=== PATIENT | female | born 1960 | race Caucasian/White ===

== ENCOUNTER → 2017-10-11 16:32 | Outpatient (CLI) | payer BC, SELFPAY ==
--- NOTE | 2017-10-11 16:37 | MM_ITS ---
MM Dig screening mamm BI w/CAD CAD Screening COMPARISON: Digital mammograms 09/23/2015 and 06/18/2013 INDICATION: There is no personal or family history of breast cancer TECHNIQUE: Standard CC and MLO images were obtained. R2 CAD reviewed. FINDINGS: Moderate diffuse fiber glandular densities are seen throughout both breasts. There is a mole marker right breast. There is no suspicious lesion and there are no suspicious microcalcifications. IMPRESSION: Moderate diffuse breast density with no suspicious lesion seen BI-RADS Category: 2 Benign Finding(s) RECOMMENDED FOLLOW-UP: 1YR - 1 YEAR FOLLOW-UP (A letter has been sent to the patient regarding results of the study.)
== END ==
PROVIDERS: Family Provider Family Medicine; PCP Family Medicine; Visit Provider Family Medicine
DX: Z12.31 Encounter for screening mammogram for malignant neoplasm of breast (principal)
CPT/HCPCS: 77067

== ENCOUNTER → 2019-07-25 14:51 | Outpatient (CLI) | payer BC, SELFPAY ==
--- NOTE | 2019-07-25 14:59 | MM_ITS ---
PROCEDURE: MM DIG MAMM BI DX W/CAD CLINICAL INDICATION: YRN BREAST PAIN COMPARISON: [facility] DIG MAMM-SCREEN YRN from 06/18/2013 [facility] DIG MAMM- YRN ADD VIEWS from 06/26/2013 [facility] DIG MAMM-SCREEN YRN from 09/23/2015 [facility] MM Dig screening mamm BI w/CAD from 10/11/2017 US BREAST RT COMPLETE from 07/25/2019 US BREAST LT COMPLETE from 07/25/2019 TECHNIQUE: Standard CC and MLO images and 3D Tomosynthesis was obtained. R2 CAD reviewed. Bilateral breast ultrasound FINDINGS: Average fibroglandular tissue. Right breast: Lobular nodularity noted in the retroareolar region on right some which may be due to ductal ectasia. No malignant appearing mass or malignant-appearing microcalcification. Right breast ultrasound: There is an 8 mm benign-appearing cyst present in the retroareolar region along with some ductal ectasia. No suspicious nodules evident. Left breast: There is some asymmetric density in the central 1/3 of the left breast in the retroareolar region. This has been present dating back to 06/26/2013 and is less apparent on the rolled views and 3D tomography and is felt to be due to overlapping fibroglandular tissue. Left breast ultrasound: There is a 6 mm cyst in the retroareolar region the. No suspicious solid nodules evident. IMPRESSION: BI-RAD Category: 2 Benign Finding(s) FOLLOW-UP: 1YR 1 Year Follow-up (A letter has been sent to the patient regarding results of the study.) Dictated by: Simeon Adams MD 07/26/2019 12:03 Electronically signed by Simeon Adams MD in [place] 07/26/2019 12:03
== END ==
PROVIDERS: PCP Family Medicine; Visit Provider Family Medicine
DX: N64.4 Mastodynia (principal)
CPT/HCPCS: 76641; 77062; 77066; G0279

== ENCOUNTER → 2021-08-27 10:07 | Outpatient (CLI) | payer BC, SELFPAY ==
[2021-08-27 12:35] LABS: Alanine Aminotransferase 19 U/L (12-78); Albumin Level 4.2 g/dl (3.5-5.0); Albumin/Globulin Ratio 1.6 (1.1-1.8); Alkaline Phosphatase 63 U/L (38-126); Anion Gap 9.5 mEq/L (5-15); Aspartate Amino Transferase 28 U/L (14-36); Bilirubin,Total 0.7 mg/dl (0.2-1.3); Blood Urea Nitrogen 17 mg/dl (7-17); Calcium 9.2 mg/dl (8.4-10.2); Carbon Dioxide 32 mmol/L (22.0-30.0); Chloride 102 mmol/L (98-107); Chol/HDL Ratio 4.5 (1-3.5); Cholesterol 203 mg/dl (140-200); Estimated Glomerular Filt Rate 72 ml/min (>60); GFR (African American) 88 ML/MIN (>60); Globulin 2.7 g/dL (1.3-3.2); Glucose 90 mg/dl (74-100); HDL Cholesterol 45 mg/dl (40-60); Potassium 4.5 mmoL/L (3.5-5.1); Sodium 139 mmol/L (136-145); Total Protein,Serum 6.9 g/dl (6.3-8.2); Triglycerides 159 mg/dl (30-150); VLDL Cholesterol 32 mg/dL (0-40)
[2021-08-27 12:46] LABS: Direct LDL Cholesterol 105.06 mg/dL (100-129)
[2021-08-27 12:50] LABS: Free T4 (Free Thyroxine) 1.03 ng/dl (0.78-2.19)
[2021-08-27 13:04] LABS: Thyroid Stimulating Hormone 7.33 uIU/mL (0.465-4.68)
== END ==
PROVIDERS: PCP Family Medicine; Visit Provider Family Medicine
DX: M25.512 Pain in left shoulder (principal); E78.2 Mixed hyperlipidemia; E03.9 Hypothyroidism, unspecified
CPT/HCPCS: 36415; 80053; 80061; 84439; 84443

== ENCOUNTER → 2021-10-20 16:16 | Outpatient (CLI) | payer BC, SELFPAY ==
--- NOTE | 2021-10-20 16:19 | MM_ITS ---
PROCEDURE INFORMATION: Exam: MG Bilateral Screening 3D Mammography Exam date and time: 10/20/2021 4:15 PM Age: 61 years old Clinical indication: Screening examination TECHNIQUE: Imaging protocol: Bilateral Screening tomosynthesis and 2D mammography including computer-aided detection (CAD) when performed. COMPARISON: 1. MG MM DIG MAMM BI DX W/CAD 07/25/2019 3:00 PM 2. MG [facility] MM Dig screening mamm BI w/CAD 10/11/2017 4:41 PM FINDINGS: MAMMOGRAPHY: Breast composition: There are scattered areas of fibroglandular density. Mass: None. Architectural distortion: None. Calcifications: No suspicious calcifications. Asymmetric density: None. Skin thickening: None. Axillary adenopathy: None. IMPRESSION: No mammographic evidence of malignancy. Annual screening is recommended unless otherwise clinically indicated. ASSESSMENT: BI-RADS Category 1: Negative
== END ==
PROVIDERS: PCP Family Medicine; Visit Provider Family Medicine
DX: Z12.31 Encounter for screening mammogram for malignant neoplasm of breast (principal)
CPT/HCPCS: 77063; 77067

== ENCOUNTER 2023-06-26 09:50 | Outpatient (CLI) | payer MEDICARE, SELFPAY ==
--- NOTE | 2023-06-26 09:55 | MM_ITS ---
PROCEDURE INFORMATION: Exam: MG Bilateral Screening 3D Mammography Exam date and time: 06/26/2023 10:16 AM Age: 63 years old Clinical indication: Screening mammogram TECHNIQUE: Imaging protocol: Bilateral Screening tomosynthesis and 2D mammography including computer-aided detection (CAD) when performed. COMPARISON: 1. MG MM DIG SCREENING MAMM BI W/CAD 10/20/2021 4:15 PM 2. MG MM DIG MAMM BI DX W/CAD 07/25/2019 3:00 PM 3. MG [facility] MM Dig screening mamm BI w/CAD 10/11/2017 4:41 PM 4. MG [facility] DIG MAMM-SCREEN YRN 09/23/2015 4:23 PM FINDINGS: MAMMOGRAPHY: Breast composition: There are scattered areas of fibroglandular density. Mass: None. Architectural distortion: No new or suspicious architectural distortion. Calcifications: Calcifications within the slightly upper slightly inner left middle 1/3 should be assessed with spot MAGNIFICATION views in CC/ML projection for morphologic characterization. Asymmetric density: No new or suspicious asymmetric density is present Skin thickening: None. Axillary adenopathy: None. IMPRESSION: Calcifications within the slightly upper slightly inner left middle 1/3 should be assessed with spot MAGNIFICATION views in CC/ML projection for morphologic characterization. ASSESSMENT: BI-RADS category 0: Incomplete-need additional imaging evaluation
== END 2023-06-26 23:59 ==
LOC: RAD 09:51
PROVIDERS: PCP Family Medicine; Visit Provider Family Medicine
DX: Z12.31 Encounter for screening mammogram for malignant neoplasm of breast (principal)
CPT/HCPCS: 77063; 77067

== ENCOUNTER 2023-07-05 08:33 | Outpatient (CLI) | payer MEDICARE, SELFPAY ==
--- NOTE | 2023-07-05 09:06 | XR_ITS ---
FINAL REPORT CLINICAL HISTORY: Osteoporosis screening COMPARISON: None FINDINGS: Using L1-4, the bone mineral density of the spine is 1.357 g/cm2, corresponding to T-score of 2.8 which is within normal limits. Using the left hip, the bone mineral density of the femoral neck is 1.079 g/cm2, corresponding to a T-score of 1.1 which is within normal limits. Using the right hip, the bone mineral density of the femoral neck is 1.023 g/cm2, corresponding to a T-score of 0.7 which is within normal limits. FRAX not reported because all T-scores at or above -1.0. NOTE: T-score: Standard deviation compared with peak bone mass of young adult mean. *Following the recommendations of the International Society of Bone densitometry, classification of hip BMD is based on the lower of two T-scores; total hip or femoral neck. IMPRESSION: Normal bone mineral density of the lumbar spine and hips. Reviewed, Interpreted and Dictated by Jovon Sinha MD Transcribed by Steph Phoenix Authenticated and [facility]
== END 2023-07-05 23:59 ==
LOC: RAD 08:33
PROVIDERS: PCP Family Medicine; Visit Provider Family Medicine
DX: Z13.820 Encounter for screening for osteoporosis; Z78.0 Asymptomatic menopausal state
CPT/HCPCS: 77080

== ENCOUNTER 2023-07-12 13:16 | Outpatient (CLI) | payer MEDICARE, SELFPAY ==
--- NOTE | 2023-07-12 13:23 | MM_ITS ---
PROCEDURE INFORMATION: Exam: MG Left Diagnostic Breast Tomosynthesis Exam date and time: 07/12/2023 1:13 PM Age: 63 years old Clinical indication: Patient recalled on the basis of a screening mammogram for further evaluation; Left breast; calcifications TECHNIQUE: Imaging protocol: Left Diagnostic tomosynthesis and 2D mammography including computer-aided detection (CAD) when performed. Unilateral or bilateral exam. COMPARISON: 1. MG MM DIG SCREENING MAMM BI W/CAD 06/26/2023 10:16 AM 2. MG MM DIG SCREENING MAMM BI W/CAD 10/20/2021 4:15 PM FINDINGS: MAMMOGRAPHY: Digital diagnostic magnification views of the middle third of the left upper inner quadrant demonstrate a cluster of punctate calcifications of uniform size, shape, and density spanning 0.3 cm of breast tissue. There is no associated soft tissue mass. The calcifications are likely benign in etiology. IMPRESSION: Probably benign calcifications in the left upper inner quadrant. A six-month follow-up diagnostic left mammogram with magnification views are recommended to ensure stability over time ASSESSMENT: BI-RADS Category 3: Probably benign
== END 2023-07-12 23:59 ==
LOC: RAD 13:16
PROVIDERS: PCP Family Medicine; Visit Provider Family Medicine
DX: R92.8 Other abnormal and inconclusive findings on diagnostic imaging of breast (principal)
CPT/HCPCS: 77061; 77065; G0279

== ENCOUNTER 2023-12-28 07:47 | Day surgery (SDC) | payer MEDICARE, SELFPAY ==
[2023-12-26 12:20] VITALS: BMI 26.4
[2023-12-28 08:10] VITALS: BP 183/72; PULSE 70; RESP 18; TEMP 36.3; O2SAT 98; BMI 31.6
[2023-12-28] MEDS: LIDOCAINE 2% UROJET 10ML 10 ML (09:01)
[2023-12-28] MEDS: 0.9 % SODIUM CHLORIDE 1000ML 1,000 ML 25 ML IV (09:01)
[2023-12-28 09:06] VITALS: BP 164/85; PULSE 72; RESP 16; TEMP 36.7; O2SAT 96
[2023-12-28 09:26] VITALS: BP 164/85; PULSE 72; RESP 16; TEMP 36.7; O2SAT 96
[2023-12-28 14:02] LABS: Microscopic,Cath URINE MICROSCOPIC (MICROSCOPIC)
[2023-12-28 14:08] LABS: Appearance,Urine/Cath SL CLOUDY (Clear); Bilirubin,Cath Negative (Negative); Blood, Urine/Cath TRACE-I (Negative); Color,Urine/Cath YELLOW (Yellow); Glucose,Urine/Cath (UA) Negative (Negative); Ketones,Urine/Cath Negative (Negative); Leukocyte Esterase,Cath 1+ (Negative); Nitrate,Cath Negative (Negative); Protein,Urine/Cath Negative (Negative); Specific Gravity, Urine/Cath <= 1.005 (1.005-1.030); Urobilinogen,Cath 0.2 EU/dl (0.2)
[2023-12-28 14:40] LABS: Squamous Epithelial Ur./Cath Occasional #/hpf (0-5)
--- NOTE | 2023-12-29 06:47 | P.PCN_ITS ---
[facility] Procedure Note Date: 12/28/23 Time: 08:00 Procedure Note:: Chart review: The patient has increasing overactive bladder and postvoid dysuria. He has been on Estrace. She currently is not on the oxybutynin. Preop diagnosis overactive bladder Postop diagnosis overactive bladder/low bladder capacity Operative note: The patient was brought to the cystoscopy suite and prepped in the usual manner. A sterile catheterization for urine analysis and culture was obtained. Patient underwent cystoscopy with the flexible cystoscope. Her urethra is unremarkable. The ureteral orifice ease are normal bilaterally with clear E flux of urine. There is no evidence of bladder stone tumor hemorrhage or infection. However the patient has a very low bladder capacity and could not hold couple of ounces before she needed me to stop filling the bladder. At a future date the patient might benefit from hydrodilatation or Botox if she continues to be refractory to medication. I can order a trial with Myrbetriq but her insurance may give issue. She will return for follow-up in a couple weeks.
== END 2023-12-28 09:26 | disposition home or self-care (01) ==
PROVIDERS: PCP Family Medicine; Visit Provider Urology
PROC: 0TJB8ZZ Inspection of Bladder, Via Natural or Artificial Opening Endoscopic (ICD-10-PCS; CPT 52000; principal; 2023-12-28 09:15)
DX: N32.81 Overactive bladder (principal); N39.41 Urge incontinence; R35.1 Nocturia; R30.0 Dysuria
CPT/HCPCS: 52000; 81001; 87086; 87088; 87186

== ENCOUNTER 2024-01-10 09:33 | Outpatient (CLI) | payer MEDICARE, SELFPAY ==
--- NOTE | 2024-01-10 09:36 | MM_ITS ---
PROCEDURE INFORMATION: Exam: MG Left Diagnostic Breast Tomosynthesis Exam date and time: 01/10/2024 9:37 AM Age: 63 years old Clinical indication: Short-term radiographic followup; Left breast; calcifications TECHNIQUE: Imaging protocol: Left Diagnostic tomosynthesis and 2D mammography including computer-aided detection (CAD) when performed. Unilateral or bilateral exam. COMPARISON: 1. MG MM DIG MAMM DX UNILAT LT CAD 07/12/2023 1:13 PM 2. MG MM DIG SCREENING MAMM BI W/CAD 06/26/2023 10:16 AM FINDINGS: MAMMOGRAPHY: Breast composition: There are scattered areas of fibroglandular density. Breast mammogram findings: There is no stellate mass or architectural distortion to suggest malignancy. Magnification views of the left upper inner quadrant demonstrate 8.3 cm cluster of punctate calcifications.. No skin thickening or axillary adenopathy. IMPRESSION: Stable calcifications in the left breast compared to prior mammogram dated 07/12/2023. A six-month follow-up diagnostic bilateral mammogram with magnification views of the left breast are recommended to ensure ongoing stability of the left-sided calcifications as well as part of her annual screening schedule. ASSESSMENT: BI-RADS Category 3: Probably benign.
== END 2024-01-10 23:59 | disposition home or self-care (01) ==
LOC: RAD 09:33
PROVIDERS: PCP Family Medicine; Visit Provider Family Medicine
DX: R92.8 Other abnormal and inconclusive findings on diagnostic imaging of breast (principal)
CPT/HCPCS: 77061; 77065; G0279

== ENCOUNTER 2024-07-14 09:40 | Outpatient (CLI) | payer MEDICARE, SELFPAY ==
--- NOTE | 2024-07-14 09:44 | MM_ITS ---
PROCEDURE INFORMATION: Exam: MG Bilateral Diagnostic Breast Tomosynthesis Exam date and time: 07/14/2024 10:05 AM Age: 64 years old Clinical indication: Six-month follow-up for probably benign left upper inner quadrant calcifications, initiated 07/12/2023 and 06/26/2023, and screening. TECHNIQUE: Imaging protocol: Bilateral Diagnostic tomosynthesis and 2D mammography including computer-aided detection (CAD) when performed. Unilateral or bilateral exam. Magnification views added. COMPARISON: 1. MG MM DIG MAMM DX UNILAT LT CAD 01/10/2024 9:37 AM 2. MG MM DIG MAMM DX UNILAT LT CAD 07/12/2023 1:13 PM 3. MG MM DIG SCREENING MAMM BI W/CAD 06/26/2023 10:16 AM 4. MG MM DIG SCREENING MAMM BI W/CAD 10/20/2021 4:15 PM FINDINGS: MAMMOGRAPHY: Breast mammogram findings: Breast composition: There are scattered areas of fibroglandular density. Mass: None. Architectural distortion: None. Calcifications: Similar or less numerous punctate calcifications in the left upper inner quadrant middle 3rd compared to 07/12/2023 magnification views. Asymmetric density: None. Skin thickening: None. Axillary adenopathy: None. IMPRESSION: No significant change in probably benign left upper inner quadrant calcifications, suggest continued six-month follow-up with magnification views unless otherwise clinically indicated. No mammographic evidence of malignancy on the right. ASSESSMENT: BI-RADS Category 3: Probably benign.
== END 2024-07-14 23:59 | disposition home or self-care (01) ==
LOC: RAD 09:41
PROVIDERS: PCP Family Medicine; Visit Provider Family Medicine
DX: R92.8 Other abnormal and inconclusive findings on diagnostic imaging of breast (principal)
CPT/HCPCS: 77062; 77066; G0279

== ENCOUNTER 2025-01-23 09:33 | Outpatient (CLI) | payer MEDICARE, SELFPAY ==
--- OUTSIDE RECORDS SUMMARY | 2024-12-17 09:30 | XMS_ITS | Encounter Summary ---
Author Organization [facility] Address [address] [place] [address] Care Team Providers Care Stamp Redemption Clerk Name Role Phone Farideh Senior DO Primary Care Provider Reason for Visit * Reason Comments 6 mo f/u Pt is fasting. Urinary Tract Infection Urinary frequenc y Encounter Details Date Type Department Care Team (Late st Contact Info) Description 12/17/2024 9:30 AM EDT Office Visit [facility] [address] [place] [address] Farideh Senior DO [address] [place] [address] Essential hypertension (Primary Dx); Mixed [...] Care Everywhere. * Urinary Tract Infection Female (Kiswahili) documented in this encounter Progress Notes * Farideh Senior, - 12/17/2024 9:30 AM EDT Images from the original note were not included. Chief Complaint 6 mo f/u (Pt is fasting. ) and Urinary Tract Infection (Urinary frequency) Subjective Marilin Funes presents to [facility] History of Present Illness The [...] 06/19/2025) for Medicare Wellness. Patient or patient physician relations representative verbalized consent for the use of [...] Description 06/22/2025 11:00 AM EST Office Visit [facility] [address] [place] [address] Farideh Senior DO [address] [place] [address] documented as of this encounter Procedures Procedure [...] Cologuard Negative Negative 01/15/2025 3:23 PM EDT [facility] (CLIA #:[id number]) Comment: The Cologuard (TM) test was performed [...] (Arabella Andrew al, N Engl J Med 2014;370(14):1286- 1297) The normal value (reference range) for this assay is negative. COLOGUARD RE-SCREENING RECOMMENDATION: Periodic colorectal cancer screening is an important part of preventive healthcare for asymptomatic individuals at average risk for colorectal cancer. Following a negative Cologuard result, the [place] [employer] and U.S. Multi-Society Task Force screening guidelines recommend a Cologuard re-screening interval of 3 years. References: [place] [employer] Guideline for Colorectal Cancer Screening: https://www.cancer.org/cancer/loese-ishtnz-fnrgbz/ecrekscwp-hhgaddjkw-nrmmlkn/ac s-rec ommendations.html.; Max DK, Ricki CR, Mario AguilarK, Colorectal Cancer Screening: Recommendations for Physicians and Patients from the U.S. Multi-Society Task Force on Colorectal Cancer Screening , Am J Gastroenterology 2017; 112:6494-0086. TEST DESCRIPTION: Composite algorithmic analysis of stool [...] (Arabella Andrew al, N Engl J Med 2014;370(14):2522-1539.) Cologuard may produce a false negative or false positive result (no colorectal cancer or precancerous polyp present at colonoscopy follow up). A negative Cologuard test result does not guarantee the absence of CRC or advanced adenoma (pre-cancer). The current Cologuard screening interval is every 3 years. ([place] [employer] and U.S. Multi-Society Task Force). Cologuard performance data in a 10,000 patient pivotal study using colonoscopy as the reference method can be accessed at the following location: www.Recorrido/results. Additional description of the Cologuard test process, warnings and precautions can be found at www.TBi ConnectogZapniprd.Ideal Implant. Stool specimen (specimen) Specimen from rectum / Unknown 01/08/2025 9:40 AM EDT 01/09/2025 4:02 PM EDT Farideh Senior DO BODY FLUIDS AND STOOLS MARIELENA HEMPHILL Final Result [facility] (CLIA #:[id number]) [place] [address], * Vitamin B12 (12/17/2024 10:28 AM EDT) Vitamin B-12 631 211 - 946 pg/mL [facility] Comment:Results may be false ly increased if patient taking Biotin. Blood 12/17/2024 10:2 8 AM EDT 12/17/2024 Narrative [facility] (AMBULATORY) - 12/23/2024 3:07 AM EDT Performed at: [address] [place], [place] [id number] Roll Inspector: Livan Dejesus MD, Phone: [phone] Patient Fasting: Y Farideh Benita Nadeen LAB BLOOD ORDERABLES Final Result [facility] (AMBULATORY) [address] [place] [address], [facility] [address] [place] [address], * (ABNORMAL) Urine Culture - Urine, Urine, Clean Catch (12/17/2024 10:28 AM EDT) [facility] Urine Culture Final report(A) [facility] Result [...] Unknown 12/17/2024 10:28 AM EDT 12/17/2024 Comment: Narrative [facility] (AMBULATORY) - 12/23/2024 3:07 AM EDT Performed at: 02 - [facility] [address] [place], [place] [id number] Roll Inspector: Johnson Rose PhD, Phone: [phone] Patient Fasting: Y Farideh Senior DO MICROBIOLOGY - GENERAL ORDE BIBIANALES Final Result Performing Organization Address [facility] Co de Phone Number [facility] ([facility]BULATORY) [address] [place] [address], [facility] [address] [place] [address], * TSH+Free T4 (12/17/2024 10:28 AM EDT) TSH 0.884 0.270 - 4.200 uIU/mL [facility] Free T4 1.30 0.92 - 1.68 ng/dL [facility] Blood 12/17/2024 10:2 8 AM EDT 12/17/2024 Narrative [facility] ([facility]BUL[facility]ORY) - 12/23/2024 3:07 AM EDT Performed at: [address] [place] [id number] Roll Inspector: Livan Dejesus MD, Phone: [phone] Patient Fasting: Y Farideh Senior DO LAB BLOOD ORDERABLES Final Result Performing Organization Address [facility] Co de Phone Number [facility] [address] [place] [address], [facility] [address] [place] [address], * (ABNORMAL) Lipid Panel With / Chol [...] 40 mg/dL [facility] LDL Chol Calc ([facility]) 76 0 - 100 mg/dL [facility] Chol/HDL Ratio 3.08 [facility] Blood 12/17/2024 10:2 8 AM EDT 12/17/2024 Narrative [facility] - 12/23/2024 3:07 AM EDT Performed at: [address] [place] [id number] Roll Inspector: Livan Dejesus MD, Phone: [phone] Patient Fasting: Y Farideh Senior DO LAB BLOOD ORDERABLES Final Result [facility] ([facility]BUL[facility]) [address] [place] [address], [facility] [address] [id number], * (ABNORMAL) Comprehensive Metabolic Panel (12/17/2024 10:28 AM EDT) [facility] Glucose 82 65 - 99 mg/dL [facility] [...] - 12/23/2024 3:07 AM EDT Performed at: [address] [place] [id number] Roll Inspector: Livan Dejesus MD, Phone: [phone] Patient Fasting: Y us Farideh Senior DO LAB BLOOD ORDERABLES Final Result [facility] [address] [place] [address], [facility] [address] [place] [address], [place] [phone] * (ABNORMAL) CBC (No Diff) (12/17/2024 10:28 AM EDT) Pathologist [facility] WBC 6.80 3.40 - 10.80 10*3/mm3 [facility] [...] - 12/23/2024 3:07 AM EDT Performed at: [address] [place] [id number] Roll Inspector: Livan Dejesus MD, Phone: [phone] Patient Fasting: Y Farideh Senior DO LAB BLOOD ORDERABLES Final Result [facility] [address] [id number], [facility] [address] [place] [address], * (ABNORMAL) POCT urinalysis dipstick, multipro (12/17/2024 9:56 AM EDT) [facility] Color Yellow Yellow, Straw, Dark Yellow, Gayle [facility] Clarity, UA Clear Clear [facility] Glucose, UA Negative Negative mg/dL [facility] Bilirubin Negative Negative [facility] Ketones, UA Negative Negative [facility] Specific [place] 1.010 1.005 - 1.030 [facility] Blood, UA Negative Negative [facility] pH, Urine 6.0 5.0 - 8.0 [facility] Protein, POC Negative Negative mg/dL [facility] Urobilinogen, UA 0.2 E.U./dL Normal, 0.2 E.U./dL [facility] Nitrite, UA Negative Negative [facility] Leukocytes Moderate (2+)(A) Negative [facility] Urine 12/17/2024 9:56 AM EDT Farideh Senior DO POINT OF CARE TEST ORDERABL ES Final Result [facility]
[address] [place] [address], documented in this encounter Visit Diagnoses Diagnosis [...] anxiety documented in this encounter Care Teams Stamp Redemption Clerk Relationship Specialty Start Date End Date Farideh Senior DO [address] [place] [address] PCP - General Family Medicine 01/31/16 documented as of this encounter
--- OUTSIDE RECORDS SUMMARY | 2025-01-23 09:35 | XMS_ITS | Encounter Summary ---
[facility] Address [address] [place] [address] Care Team Providers Care Gardening Manager Name Role Phone Farideh Senior DO Primary Care Provider Reason for Visit * Reason Comments Med Refill Encounter Details Date Type Department Care Team (Late Contact Info) Description 12/09/2024 Refill [facility] [address] [place] [address] Farideh Senior DO [address] [place] [address] Mixed hyperlipidemia Social History Tobacco Use Types Packs/Day Years [...] on file documented as of this encounter Plan of Treatment Upcoming Encounters Date Type Department Care Team (Late Contact Info) Description 06/22/2025 11:00 AM EST Office Visit [facility] [address] [place] [phone] Farideh Senior DO [address] [place] [address] documented as of this encounter Visit Diagnoses Diagnosis Mixed hyperlipidemia documented in this encounter Care Teams Gardening Manager Relationship Specialty Start Date End Date Farideh Senior DO [address] [address] PCP - General Family Medicine 01/31/16 documented as of this encounter
--- OUTSIDE RECORDS SUMMARY | 2025-01-23 09:35 | XMS_ITS | Encounter Summary ---
Author Organization [facility] Address [address] [place] [address] Care Team Providers Care Resource Manager Name Role Phone Farideh Senior DO Primary Care Provider Encounter Details Date Type Department Care Team (Latest Contact Info) Description 12/17/2024 Travel Social History Tobacco Use Types Packs/Day Years [...] Description 06/22/2025 11:00 AM EST Office Visit [facility] [address] [place] [address] Farideh Senior DO [address] [place] [address] documented as of this encounter Visit Diagnoses Not on filedocumented in this encounter Care Teams Resource Manager Relationship Specialty Start Date End Date Farideh Senior DO [address] [place] [address] PCP - General Family Medicine 01/31/16 documented as of this encounter
--- OUTSIDE RECORDS SUMMARY | 2025-01-23 09:35 | XMS_ITS | Encounter Summary ---
[facility] [address] [place] [address] Care Team Providers Care Carroting Machine Operator Name Role Phone Farideh Senior DO Primary Care Provider Reason for Visit * Reason Comments Med Refill Encounter Details Date Type Department Care Team (Late Contact Info) Description 11/24/2024 Refill [facility] [address] [place] [address] Farideh Senior DO [address] [place] [address] Memory changes Social History Tobacco Use Types Packs/Day Years [...] Description 06/22/2025 11:00 AM EST Office Visit [facility] [address] [place] [phone] Farideh Senior DO [address] [place] [address] documented as of this encounter Visit Diagnoses Diagnosis Memory changes documented in this encounter Care Teams Carroting Machine Operator Relationship Specialty Start Date End Date Farideh Senior DO [address] [place] [address] PCP - General Family Medicine 01/31/16 documented as of this encounter
--- OUTSIDE RECORDS SUMMARY | 2025-01-23 09:35 | XMS_ITS | Encounter Summary ---
[facility] [address] [place] [address] Care Team Providers Care Weight Loss Counselor Name Role Phone Farideh Senior DO Primary Care Provider [phone] Reason for Visit * Reason Comments Med Refill Encounter Details Date Type Department Care Team (Late Contact Info) Description 11/23/2024 Refill [facility] [address] [place] [address] Farideh Senior DO [address] [place] [address] Essential hypertension Social History Tobacco Use Types Packs/Day Years [...] 11:00 AM EST Office Visit [facility] [address] [place] [address] Farideh Senior DO [address] [place] [address] documented as of this encounter Visit Diagnoses Diagnosis Essential hypertension Unspecified essential hypertension documented in this encounter Care Teams Weight Loss Counselor Relationship Specialty Start Date End Date Farideh Senior DO [address] [place] [address] PCP - General Family Medicine 01/31/16 documented as of this encounter
--- OUTSIDE RECORDS SUMMARY | 2025-01-23 09:35 | XMS_ITS | Clinical Summary ---
Author Organization [facility] Address [address] [id number] Care Team Providers Care Gardening Manager Name Role Phone Unavailable Primary Care Provider Unavailabl e Family History Medical History Relation Name Comments Coronary artery disease Other Relation Name Status Comments Other Social History Tobacco Use Types Packs/Day Years Used Date Smoking Tobacco: Every Day Alcohol Use Standard Drinks/Week Comments Yes 0 (1 standard drink = 0.6 oz pure alcohol) Alcoholic Drinks/day: Social alcohol use Comments Unknown Sex and Gender Information Value Date Recorded Sex Assigned at Not on file Legal Sex Female 7:56 PM EDT Gender Identity Not on file Sexual Orientation Not on file Last Filed Vital Signs Vital Sign Reading Time Taken Comments Blood Pressure - - Pulse - - Temperature - - Respiratory Rate - - Oxygen Saturation - - Inhaled Oxygen Concentration - - Weight 86.2 kg (189 lb 15.9 oz) 10/15/2015 2:37 PM EDT Height 177.8 cm (5' 10 ) 10/15/2015 2:37 PM EDT Body Mass Index 27.26 10/15/2015 2:37 PM EDT Plan of Treatment Health Maintenance Due Date Last Done Comments [facility]-Bone Density Scan 1958 [facility]-Depression Screening 1958 [facility]-/Child/Adol SDOH Screenings 1958 [facility]- SDOH Screenings 1976 [facility]-Adult SDOH Screenings 1976 [facility]-DTaP,Tdap,and Td Vaccine s (1 - Tdap) 1977 CT Colonography 2003 Colonoscopy 2003 FIT-DNA 2003 FIT 2003 FOBT 2003 Sigmoidoscopy 2003 [facility]-Colorectal Cancer Screening 2003 [facility]-Pneumococcal Vaccine: 50 + Years (1 of 1 - PCV) 2008 [facility]-Zoster Vaccines (1 of 2) 2008 LEG-EBYPW-84 Vaccine ( 20 24-25 season) 2024 [facility]-Influenza Vaccine (#1) 2025 [facility]-RSV Vaccine: 60+ Years o r (1 - 1-dose 75+ series) 2033 HPV Vaccines Aged Out No longer eligi ble based on patient's age to complete this topic [facility]-HIB Vaccines Aged Out No longer e ligible based on patient's age to complete this topic [facility]-Hepatitis A Vaccines Aged Out No longer eligible based on patient's age to complete this topic [facility]-IPV Vaccines Aged Out No longer e ligible based on patient's age to complete this topic [facility]-Rotavirus Vaccines Aged Out No lo nger eligible based on patient's age to complete this topic
--- OUTSIDE RECORDS SUMMARY | 2025-01-23 09:35 | XMS_ITS | Encounter Summary ---
Author Organization [facility] Address [address] [place] [address] Care Team Providers Care Radio Control Crane Operator Name Role Phone Farideh Senior DO Primary Care Provider Reason for Visit * Reason Onset Date Comments Results 01/04/2025 Encounter Details Date Type Department Care Team (Late st Contact Info) Description 01/04/2025 Results Follow-Up [facility] [address] [facility] [place] [address] Farideh Senior DO [address] [place] [address] Results Social History Tobacco Use Types Packs/Day Years [...] 11:00 AM EST Office Visit [facility] [address] [place] [address] Farideh Senior DO [address] [place] [address] Scheduled Orders Name Type Priority Associated Diagnoses Orde r Schedule Comprehensive metabolic panel Lab Routine Elevated LFTs Expected: 01/09/2025 (Approximate), Expires: 04/06/2026 documented as of this encounter Visit Diagnoses Diagnosis Elevated LFTs- Primary Other abnormal blood chemistry documented in this encounter Care Teams Radio Control Crane Operator Relationship Specialty Start Date End Date Farideh Senior DO [address] [place] [address] PCP - General Family Medicine 01/31/16 documented as of this encounter
--- OUTSIDE RECORDS SUMMARY | 2025-01-23 09:36 | XMS_ITS | Clinical Summary ---
Author Organization [facility] Address [address] [place] [address] Care Team Providers Care Network Operations Center Technician Name Role Phone NadeenFarideh tabares Benita BRODERICK Primary Care Provider Allergies Active Allergy Reactions Criticality Noted Date Comments Ciprofloxacin Rash Low 01/31/2016 Indomethacin Headache Low 01/31/2016 Atorvastatin Myalgia Low 01/31/2016 Nirmatrelvir-Ritonavir Anaphylaxis,Diarr hea ,Nausea Only High 02/13/2024 Metallic taste, throat felt like it was closing Simvastatin Myalgia Low 05/06/2018 Ezetimibe-Simvastatin Myalgia Low 01/31/2016 Medications estradiol (ESTRACE) 2 MG tablet Take 1 tablet by mouth Daily. 01/02/20 16 Active aspirin 81 MG EC tablet Take 1 tablet by mouth Daily. Active Triamcinolone Acetonide (NASACORT) 55 MCG/ACT nasal inhaler Administer 2 sprays into the nostril(s) as directed by provider As Needed. Active vitamin C (ASCORBIC ACID) 250 MG tablet Take 1 tablet by mouth Daily. Active cyanocobalamin (VITAMIN B-12) 2500 MCG tablet tablet Take 1 tablet by mouth Daily. Active Cholecalciferol (Vitamin D-3) 125 MCG (5000 UT) tablet Take 1 tablet by mouth Daily. Active chlorhexidine (PERIDEX) 0.12 % solutionIndicatio ns:Wears dentures SWISH AND SPIT 5-10 ML NEEDED DIRECTED FOR DENTURE USE 473 mL 2 06/06/20 23 Active cyclobenzaprine (FLEXERIL) 5 MG tabletIndications :Thoracolumbar back pain Take 1 tablet by mouth 3 (Three) Times a Day As Needed for Muscle Spasms. 30 tablet 10/03/19 24 Active estradiol (VAGIFEM) 10 MCG tablet vaginal tablet Insert 1 tablet into the vagina 2 (Two) Times a Week. 12/03/19 24 Active ondansetron (Zofran) 4 MG tablet Take 1 tablet by mouth Every 8 (Eight) Hours As Needed for Nausea or Vomiting. 15 tablet 03/07/20 24 Active naproxen (NAPROSYN) 500 MG tabletIndications :Arthralgia, unspecified joint TAKE 1 TABLET BY MOUTH 2 (TWO) TIMES A DAY NEEDED FOR MODERATE PAIN. TAKE WITH FOOD 60 tablet 2 10/10/19 25 Active carvedilol (COREG) 6.25 MG tabletIndications :Essential hypertension Take 1 tablet by mouth Daily. 90 tablet 1 12/18/19 25 Active donepezil (ARICEPT) 5 MG tabletIndications :Memory changes Take 1 tablet by mouth Every Night. 90 tablet 3 12/18/19 25 Active olmesartan-hydroc hlorothiazide (BENICAR HCT) 40-12.5 MG per tabletIndications :Essential hypertension Take 1 tablet by mouth Daily. 90 tablet 1 12/18/19 25 Active pantoprazole (PROTONIX) 40 MG EC tabletIndications :Gastroesophageal reflux disease Take 1 tablet by mouth Daily. 90 tablet 3 12/18/19 25 Active pravastatin (PRAVACHOL) 40 MG tabletIndications :Mixed hyperlipidemia Take 1 tablet by mouth Daily. 90 tablet 3 12/18/19 25 Active ALPRAZolam (XANAX) 0.5 MG tabletIndications :Situational anxiety Take 1 tablet by mouth 2 (Two) Times a Day As Needed for Anxiety. 10 tablet 12/18/19 25 Active loratadine (Claritin) 10 MG tabletIndications :Environmental allergies Take 1 tablet by mouth Daily. 90 tablet 3 12/18/19 25 Active Synthroid 125 MCG tablet TAKE 1 TABLET BY MOUTH EVERY MORNING 30 tablet 01/13/20 25 Active Synthroid 125 MCG tablet TAKE 1 TABLET BY MOUTH EVERY MORNING 30 tablet 12/10/19 25 2024 Discontinued sulfamethoxazole- trimethoprim (Bactrim DS) 800-160 MG per tabletIndications :Frequent urination,UTI symptoms,Urine leukocytes Take 1 tablet by mouth 2 (Two) Times a Day for 7 days. 14 tablet 12/18/19 25 2024 nitrofurantoin, macrocrystal-mono hydrate, (Macrobid) 100 MG capsule Take 1 capsule by mouth 2 (Two) Times a Day for 7 days. 14 capsule 01/07/20 25 2024 Active Problems Problem Noted Date Diagnosed Date Ataxia 07/23/2020 Keeps losing balance 07/23/2020 Family history of early CAD 07/23/2020 Memory changes 07/23/2020 Tension headache 08/06/2017 Chronic pain of left knee 08/06/2017 Gastroesophageal reflux disease 08/06/2017 Essential hypertension 08/06/2017 Acquired hypothyroidism 08/06/2017 Mixed hyperlipidemia 08/06/2017 Seasonal allergic rhinitis due to pollen 017 Encounters Date Type Department Care Team Description 01/12/2025 Refill [facility] [address] [phone] Farideh Senior DO 01/04/2025 Results Follow-Up [facility] [address] [phone] Farideh Senior DO Results 12/17/2024 9:30 AM EDT Office Visit [facility] [address] [address] Farideh Senior DO Essential hypertension (Primary Dx); Mixed hyperlipidemia; Acquired hypothyroidism; Frequent urination; UTI symptoms; Urine leukocytes; Other fatigue; Screening for colon cancer; Memory changes; Environmental allergies; Gastroesophageal reflux disease; Situational anxiety 12/17/2024 Travel 12/09/2024 Refill [facility] [address] [address] Farideh Senior DO Mixed hyperlipidemia 11/24/2024 Refill [facility] [address] [address] Farideh Senior, DO Memory changes 11/23/2024 Refill [facility] [address] [place] [address] Farideh Senior, DO Essential hypertension from Last 3 Months Immunizations Immunization Administration Dates Next Due COVID-19 (MODERNA) 1st,2nd,3 rd Dose Monovalent 09/23/2021,05/13/2021 Fluzone >6mos 03/21/2017,03/21/2017 Fluzone (or Fluarix & Flulav al for VFC) >6mos 04/07/2022,03/19/2020,03/29/2019 Fluzone High-Dose 65+yrs 06/06/2023 Hepatitis A 03/14/2019 Pneumococcal Conjugate 20-Valent (PCV20) 023 Tdap 02/19/2019 Zostavax 03/21/2017,03/21/2017 Family History Medical History Relation Name Comments Heart attack Brother 1 Heart attack Brother 2 Asthma Father Jamie Diabetes Mother [place] Heart attack Mother [place] Heart disease Mother [place] Hyperlipidemia Mother [place] Hypertension Mother [place] Kidney disease Mother [place] No Known Problems Sister Relation Name Status Comments Brother 1 Alive Brother 2 Father Irsael Mother [place] Sister Social History Tobacco Use Types Packs/Day Years Used Date Smoking Tobacco: Never Passive Smoke Exposure: Yes Smokeless Tobacco: Never Tobacco Cessation:Counseling Given: Not Answered Alcohol Use Standard Drinks/Week Comments No 0 [...] Mass Index 26.98 12/17/2024 9:17 AM EDT Plan of Treatment Upcoming Encounters Date Type Department Care Team (Late st Contact Info) Description 06/22/2025 11:00 AM EST Office Visit [facility] [address] [place], [place] [address] Farideh Senior DO [address] [place] [address] Health Maintenance Due Date Last Done Comments COLON CANCER SCREENING [address] COLONOGRAPHY 2003 FECAL OCCULT BLOOD TEST 2003 FIT Testing (1 year) 2003 ZOSTER VACCINE (2 of 3) 05/16/2017 03/21/2017, 03/21 COLONOSCOPY 06/11/2020 06/11/2010 (Jazmin ent-Reported (Performed Externally)) COVID-19 Vaccine (2023-2 5 season) 2024 06/23/2022, 09/23/2021, 05/13/2021, Additional history exists INFLUENZA VACCINE 03/11/2025 06/06/2023, , 03/19/2020, Additional history exists ANNUAL WELLNESS VISIT 06/19/2025 06/19/2024 , 06/19/2024, 06/06/2023, Additional history exists DXA SCAN 07/05/2025 07/05/2023 LIPID PANEL 12/17/2025 12/17/2024, 02/2025, 06/06/2023, Additional history exists MAMMOGRAM 07/14/2026 07/14/2024, 08/0 06/2023, 07/12/2023, Additional history exists COLOGUARD 01/09/2028 01/08/2025, 04/0 11/2021, 08/14/2021 COLORECTAL CANCER SCREENING 01/09/2028 TDAP/TD VACCINES (2 - Td or Tdap) 02/19/2029 019 HEPATITIS C SCREENING Completed 02/25/2019 Pneumococcal Vaccine 50+ Completed 06/06/2023 Procedures Procedure Name Priority Date/Time Associated Diagnosis Comments COLOGUARD Routine 01/08/2025 9:40 AM EDT Screening for colon cancer VITAMIN B12 Routine 12/17/2024 10:28 AM EDT Essential hypertension Mixed hyperlipidemia Acquired hypothyroidism Frequent urination UTI symptoms Urine leukocytes TSH+FREE T4 Routine 12/17/2024 10:28 AM EDT Essential hypertension Mixed hyperlipidemia Acquired hypothyroidism Frequent urination UTI symptoms Urine leukocytes LIPID PANEL W/ CHOL/HDL RATIO Routine 12/17/2024 [...] EDT Frequent urination UTI symptoms Urine leukocytes POCT URINALYSIS DIPSTICK, MULTIPRO Routine 12/17/2024 9:56 AM EDT Frequent urination MAMMO DIAGNOSTIC DIGITAL TOMOSYNTHESIS BILATERAL W CAD Routine 07/14/2024 Abnormal mammogram DEXA BONE DENSITY AXIAL Routine 07/05/2023 Postmenopausal Screening for osteoporosis from Last 3 Months or Most Recently Relevant to Health Maintenance Results * Cologuard - Stool, Per Rectum (01/08/2025 9:40 AM EDT) Cologuard Negative Negative 01/15/2025 3:23 PM EDT [facility] (CLIA #:[id number]) Comment: The Cologuard (TM) test was performed [...] cancer. Following a negative Cologuard result, the [employer] Cancer Society and U.S. Multi-Society Task Force screening guidelines recommend a Cologuard re-screening interval of 3 years. References: [employer] Society Guideline for Colorectal Cancer Screening: https://www.cancer.org/cancer/dxtdd-cogfni-qozdmn/klwqemfcd-nvolbxmee-cjuiort/ac s-rec ommendations.html.; Max DK, Ricki CR, Mario AguilarK, Colorectal Cancer Screening: Recommendations for Physicians and Patients from the U.S. Multi-Society Task Force on Colorectal Cancer Screening , Am J Gastroenterology 2017; 112:8106-1556. TEST DESCRIPTION: Composite algorithmic analysis of stool [...] (Arabella Andrew al, N Engl J Med 2014;370(14):8267-8919.) Cologuard may produce a false negative or false positive result (no colorectal cancer or precancerous polyp present at colonoscopy follow up). A negative Cologuard test result does not guarantee the absence of CRC or advanced adenoma (pre-cancer). The current Cologuard screening interval is every 3 years. ([place] [employer] Society and U.S. Multi-Society Task Force). Cologuard performance data in a 10,000 patient pivotal study using colonoscopy as the reference method can be accessed at the following location: www.Qteros.adicate timeads/results. Additional description of the Cologuard test process, warnings and precautions can be found at www.[employer] Rewardsrd.com. Stool specimen (specimen) Specimen from rectum / Unknown 01/08/2025 9:40 AM EDT 01/09/2025 4:02 PM EDT Farideh Sneior DO BODY FLUIDS AND STOOLS MARIELENA HEMPHILL Final Result [facility] (CLIA #:[id number]) [place] [address], * (ABNORMAL) Lipid Panel With / Chol [...] 40 mg/dL [facility] LDL Chol Calc (NIH) 76 0 - 100 mg/dL [facility] Chol/HDL Ratio 3.08 [facility] Blood 12/17/2024 10:2 8 AM EDT 12/17/2024 Narrative [facility] (AMBULATORY) - 12/23/2024 3:07 AM EDT Performed at: [address] [place] [id number] Housekeeping Supervisor Hotel: Livan Dejesus MD, Phone: [phone] Patient Fasting: Y us Farideh Senior DO LAB BLOOD ORDERABLES Final Result [facility] [employer] [facility] (AMBULATORY) [address] [place] [address], [facility] [address] [place] [address], * TSH+Free T4 (12/17/2024 10:28 AM EDT) Pathologist [facility] [place] TSH 0.884 0.270 - 4.200 uIU/mL [facility] Free T4 1.30 0.92 - 1.68 ng/dL [facility] Blood 12/17/2024 10:2 8 AM EDT 12/17/2024 Narrative [facility] (AMBULATORY) - 12/23/2024 3:07 AM EDT Performed at: [address] [place] [address] [address] [place], [place] [id number] Housekeeping Supervisor Hotel: Livan Dejesus MD, Phone: [phone] Patient Fasting: Y Maozhao DO LAB BLOOD ORDERABLES Final Result [facility] (AMBULATORY) [address] [place] [address], [facility] [address] [place] [address], [place] [phone] * (ABNORMAL) CBC (No Diff) (12/17/2024 10:28 AM EDT) [facility] WBC 6.80 3.40 - 10.80 10*3/mm3 [facility] [...] - 12/23/2024 3:07 AM EDT Performed at: [address] [place] [address] [address] [place], [place] [id number] Housekeeping Supervisor Hotel: Livan Dejesus MD, Phone: [phone] Patient Fasting: Y Farideh Benita Nadeen DO LAB BLOOD ORDERABLES Final Result [facility] [address] [place] [address], [facility] [address] [place] [address], * (ABNORMAL) Urine Culture - Urine, Urine, Clean Catch (12/17/2024 10:28 AM EDT) [facility] Urine Culture Final report(A) [facility] [...] / Unknown 12/17/2024 10:28 AM EDT 12/17/2024 Comment:BILLIE Shafer [facility] (AMBULATORY) - 12/23/2024 3:07 AM EDT Performed at: 02 - [facility] [address] [place] [id number] Housekeeping Supervisor Hotel: Johnson Rose PhD, Phone: [phone] Patient Fasting: Y Farideh Senior DO MICROBIOLOGY - GENERAL ORDE RABKARL Final Result Performing Organization Address City/[facility]/ZIP Co de Phone Number [facility] [address] [place] [address], [facility] [address] [place] [address], [place] [phone] * Vitamin B12 (12/17/2024 10:28 AM EDT) Pathologist [facility] [place] Vitamin B-12 631 211 - 946 pg/mL [facility] Comment:Results may be false ly increased if patient taking Biotin. Blood 12/17/2024 10:2 8 AM EDT 12/17/2024 Narrative [facility] (AMBULATORY) - 12/23/2024 3:07 AM EDT Performed at: [address] [place] [id number] Housekeeping Supervisor Hotel: Livan Dejesus MD, Phone: [phone] Patient Fasting: Y Farideh Senior LAB BLOOD ORDERABLES Final Result [facility] [employer] [facility] (AMBULATORY) [address] [place] [id number], [facility] [address] [place] [address], [place] [phone] * (ABNORMAL) Comprehensive Metabolic Panel (12/17/2024 10:28 AM EDT) Pathologist [facility] [place] Glucose 82 65 - 99 mg/dL [facility] [...] - 12/23/2024 3:07 AM EDT Performed at: [address] [place] [id number] Housekeeping Supervisor Hotel: Livan Dejesus MD, Phone: [phone] Patient Fasting: Y Farideh Senior DO LAB BLOOD ORDERABLES Final Result [facility] ([facility]UL[facility]) [address] [place] [address], [facility] [address] [place] [address], [place] [phone] * (ABNORMAL) POCT urinalysis dipstick, multipro (12/17/2024 9:56 AM EDT) Color Yellow Yellow, Straw, Dark Yellow, Gayle [facility] Clarity, UA Clear Clear [facility] Glucose, UA Negative Negative mg/dL [facility] Bilirubin Negative Negative [facility] Ketones, UA Negative Negative [facility] Specific [place] 1.010 1.005 - 1.030 [facility] Blood, UA Negative Negative [facility] pH, Urine 6.0 5.0 - 8.0 [facility] Protein, POC Negative Negative mg/dL [facility] Urobilinogen, UA 0.2 E.U./dL Normal, 0.2 E.U./dL [facility] Nitrite, UA Negative Negative [facility] Leukocytes Moderate (2+)(A) Negative [facility] Urine 12/17/2024 9:56 AM EDT Farideh Senior DO POINT OF CARE TEST ORDERABL ES Final Result [facility]
[address] [place] [address], * Mammo Diagnostic Digital Tomosynthesis Bilateral With CAD (07/14/2024) Anatomical Region Laterality Modality Breast Bilateral Mammography Farideh Senior DO IMG MAMMOGRAPHY ORDERABLES Final Result * DEXA Bone Density Axial (07/05/2023) Anatomical Region Laterality Modality Wrist, Hip, L-spine N/A Radiographic Imaging Farideh Senior DO IMG DXA ORDERABLES Final Re sult from Last 3 Months or Most Recently Relevant to Health Maintenance Insurance [employer] MED[employer]ARE [employer]VANTAGE PPO Care Teams Network Operations Center Technician Relationship Specialty Start Date End Date Farideh Senior DO [address] [place] [address] PCP - General Family Medicine 01/31/16
--- OUTSIDE RECORDS SUMMARY | 2025-01-23 09:36 | XMS_ITS | Encounter Summary ---
[facility] Address [address] [place] [address] Care Team Providers Care Lab Animal Technologist Name Role Phone Farideh Senior DO Primary Care Provider Reason for Visit * Reason Comments Med Refill Encounter Details Date Type Department Care Team (Late Contact Info) Description 01/12/2025 Refill [facility] [address] [place] [address] Farideh Senior DO [address] [place] [address] Social History Tobacco Use Types Packs/Day Years [...] Description 06/22/2025 11:00 AM EST Office Visit [facility] [address] [place] [id number] Farideh Senior DO [address] [place] [address] documented as of this encounter Visit Diagnoses Not on filedocumented in this encounter Care Teams Lab Animal Technologist Relationship Specialty Start Date End Date Farideh Senior DO [address] [place] [address] PCP - General Family Medicine 01/31/16 documented as of this encounter
--- NOTE | 2025-01-23 09:37 | MM_ITS ---
PROCEDURE INFORMATION: Exam: MG Left Diagnostic Breast Tomosynthesis Exam date and time: 01/23/2025 9:51 AM Age: 64 years old Clinical indication: Follow-up from prior for probably benign left breast calcifications TECHNIQUE: Imaging protocol: Left Diagnostic tomosynthesis and 2D mammography including computer-aided detection (CAD) when performed. Unilateral or bilateral exam. COMPARISON: 1. MG MM DIG MAMM BI DX W/CAD 07/14/2024 10:05 AM 2. MG MM DIG SCREENING MAMM BI W/CAD 06/26/2023 10:16 AM FINDINGS: MAMMOGRAPHY: Breast composition: There are scattered areas of fibroglandular density. Breast mammogram findings: Left breast magnification and 90 degree lateral tomosynthesis views were obtained. There are stable punctate calcifications in the left upper inner quadrant at middle depth spanning 0.2 cm.Elsewhere, there are no suspicious masses or calcifications in the partially visualized breast. No abnormal lymph nodes in the partially visualized axilla. IMPRESSION: Stable left breast calcifications, unchanged since 06/26/2023 and probably benign. Recommend six-month follow-up bilateral diagnostic mammogram including left breast magnification views to ensure stability. ASSESSMENT: BI-RADS Category 3: Probably benign.
== END 2025-01-23 23:59 | disposition home or self-care (01) ==
LOC: RAD 09:34
PROVIDERS: PCP Family Medicine; Visit Provider Family Medicine
DX: N64.89 Other specified disorders of breast (principal); R92.322 Mammographic fibroglandular density, left breast; R92.8 Other abnormal and inconclusive findings on diagnostic imaging of breast
CPT/HCPCS: 77061; 77065; G0279

== ENCOUNTER 2025-02-06 08:03 | Outpatient (CLI) | payer MEDICARE, SELFPAY ==
--- OUTSIDE RECORDS SUMMARY | 2024-12-17 09:30 | XMS_ITS | Encounter Summary ---
[facility] [address] [place] [address] Care Team Providers Care Product Mgr Name Role Phone Farideh Senior DO Primary Care Provider Reason for Visit * Reason Comments 6 mo f/u Pt is fasting. Urinary Tract Infection Urinary frequenc y Encounter Details Date Type Department Care Team (Late st Contact Info) Description 12/17/2024 9:30 AM EDT Office Visit [facility] [address] [facility] [place] [address] Farideh Seniro DO [address] [facility] [place] [address] Essential hypertension (Primary Dx); Mixed hyperlipidemia; Acquired hypothyroidism; Frequent urination; UTI symptoms; Urine leukocytes; Other fatigue; Screening for colon cancer; Memory changes; Environmental allergies; Gastroesophageal reflux disease; Situational anxiety Social History Tobacco Use Types Packs/Day Years Used Date Smoking Tobacco: Never Passive Smoke Exposure: Yes Smokeless Tobacco: Never Alcohol Use Standard Drinks/Week Comments No 0 (1 standard drink = 0.6 oz pur e alcohol) PHQ-2 Answer Date Recorded Retired PHQ-9: Brief Depression Severity Measure Score 0 04/07/2022 PHQ-2 Answer Date Recorded Patient Health Questionnaire-2 Score 0 06/19/2024 Comments Unknown Sex and Gender Information Value Date Recorded Sex Assigned at Not on file Legal Sex Female 1:36 PM EDT Gender Identity Not on file Sexual Orientation Not on file documented as of this encounter Last Filed Vital Signs Vital Sign Reading Time Taken Comments Blood Pressure 148/72 12/17/2024 9:17 AM EDT Pulse 62 12/17/2024 9:17 AM EDT Temperature 36.5 C (97.7 F) 12/17/2024 9:17 AM EDT Respiratory Rate 18 12/17/2024 9:17 AM EDT Oxygen Saturation 96% 12/17/2024 9:17 AM EDT Inhaled Oxygen Concentration - - Weight 85.3 kg (188 lb) 12/17/2024 9:17 AM EDT Height 177.8 cm (5' 10 ) 12/17/2024 9:17 AM EDT Body Mass Index 26.98 12/17/2024 9:17 AM EDT documented in this encounter Patient Instructions * Attachments The following attachments cannot be sent through Care Everywhere. * Urinary Tract Infection Female (Tajik) documented in this encounter Progress Notes * Farideh Senior, - 12/17/2024 9:30 AM EDT Images from the original note were not included. Chief Complaint 6 mo f/u (Pt is fasting. ) and Urinary Tract Infection (Urinary frequency) Subjective Marilin Funes presents to [facility] History of Present Illness The patient presents for a 6-month follow-up and is also experiencing urinary frequency. She reports that the urinary frequency and occasional burning sensation began about a week ago, which she suspects might be due to a urinary tract infection (UTI). She has previously taken Bactrim without any adverse reactions and tends to develop yeast infections when on antibiotics. She continues to experience low energy levels despite maintaining good sleep hygiene. She does not snore except during sinus flare-ups. Typically, she wakes up around 4:00 or 4:30 AM to use the bathroom but can return to sleep easily. She is currently taking vitamin D3 supplements. Her blood pressure readings have been slightly elevated recently, although not as high as they werein June 2024. She monitors her blood pressure at home, which was 129/54 this morning. However, her readings are consistently high during her visits to Dr. Peña, her urologist. She has been receiving reminders for her colon cancer screening. She experiences hemorrhoid irritation during bowel movements. She is requesting refills for all hermedications. She has been taking donepezil for memory issues, which initially seemed effective, but she feels ithas plateaued. She experiences ankle swelling after prolonged sitting. She has been using Nasacort nasal spray and finds Claritin more effective than Pamela for her allergies. FAMILY HISTORY Her brother was diagnosed with liver cancer. Her sister had cancer, but the type is unknown and sheis unsure of this. The following portions of the patient's history were reviewed and updated as appropriate: allergies, current medications, past family history, past medical history, past social history, past surgicalhistory, and problem list. Objective Physical Exam Vitals and nursing note reviewed. HENT: Right Ear: A middle ear effusion is present. Tympanic membrane is not injected or erythematous. Left Ear: Tympanic membrane, ear canal and external ear normal. Cardiovascular: Rate and Rhythm: Normal rate and regular rhythm. Heart sounds: Normal heart sounds. No murmur heard. Pulmonary: Effort: Pulmonary effort is normal. Breath sounds: Normal breath sounds. No wheezing. Neurological: Mental Status: She is alert. Psychiatric: Mood and Affect: Mood normal. Physical Exam Result Review : The following data was reviewed by: Farideh Senior DO on 12/17/2024: UA 12/17/2024 09:56 Urinalysis Ketones, UA Negative Leukocytes, UA Moderate (2+) Results Assessment and Plan Diagnoses and all orders for this visit: 1. Essential hypertension (Primary) - CBC (No Diff) - Comprehensive Metabolic Panel - Lipid Panel With / Chol / HDL Ratio - TSH+Free T4 - Vitamin B12 - carvedilol (COREG) 6.25 MG tablet; Take 1 tablet by mouth Daily. Dispense: 90 tablet; Refill: 1 - olmesartan-hydrochlorothiazide (BENICAR HCT) 40-12.5 MG per tablet; Take 1 tablet by mouth Daily.Dispense: 90 tablet; Refill: 1 2. Mixed hyperlipidemia - CBC (No Diff) - Comprehensive Metabolic Panel - Lipid Panel With / Chol / HDL Ratio - TSH+Free T4 - Vitamin B12 - pravastatin (PRAVACHOL) 40 MG tablet; Take 1 tablet by mouth Daily. Dispense: 90 tablet; Refill: 3 3. Acquired hypothyroidism - CBC (No Diff) - Comprehensive Metabolic Panel - Lipid Panel With / Chol / HDL Ratio - TSH+Free T4 - Vitamin B12 4. Frequent urination - CBC (No Diff) - Comprehensive Metabolic Panel - Lipid Panel With / Chol / HDL Ratio - TSH+Free T4 - POCT urinalysis dipstick, multipro - Urine Culture - Urine, Urine, Clean Catch - Vitamin B12 - sulfamethoxazole-trimethoprim (Bactrim DS) 800-160 MG per tablet; Take 1 tablet by mouth 2 (Two) Times a Day for 7 days. Dispense: 14 tablet; Refill: 0 5. UTI symptoms - CBC (No Diff) - Comprehensive Metabolic Panel - Lipid Panel With / Chol / HDL Ratio - TSH+Free T4 - Urine Culture - Urine, Urine, Clean Catch - Vitamin B12 - sulfamethoxazole-trimethoprim (Bactrim DS) 800-160 MG per tablet; Take 1 tablet by mouth 2 (Two) Times a Day for 7 days. Dispense: 14 tablet; Refill: 0 6. Urine leukocytes - CBC (No Diff) - Comprehensive Metabolic Panel - Lipid Panel With / Chol / HDL Ratio - TSH+Free T4 - Urine Culture - Urine, Urine, Clean Catch - Vitamin B12 - sulfamethoxazole-trimethoprim (Bactrim DS) 800-160 MG per tablet; Take 1 tablet by mouth 2 (Two) Times a Day for 7 days. Dispense: 14 tablet; Refill: 0 7. Other fatigue 8. Screening for colon cancer - Cologuard - Stool, Per Rectum; Future 9. Memory changes - donepezil (ARICEPT) 5 MG tablet; Take 1 tablet by mouth Every Night. Dispense: 90 tablet; Refill:3 10. Environmental allergies - Discontinue: fexofenadine (Pamela Allergy) 180 MG tablet; Take 1 tablet by mouth Daily. Dispense: 90 tablet; Refill: 3 - loratadine (Claritin) 10 MG tablet; Take 1 tablet by mouth Daily. Dispense: 90 tablet; Refill: 3 11. Gastroesophageal reflux disease - pantoprazole (PROTONIX) 40 MG EC tablet; Take 1 tablet by mouth Daily. Dispense: 90 tablet; Refill: 3 12. Situational anxiety - ALPRAZolam (XANAX) 0.5 MG tablet; Take 1 tablet by mouth 2 (Two) Times a Day As Needed for Anxiety. Dispense: 10 tablet; Refill: 0 Other orders - fluconazole (Diflucan) 150 MG tablet; Take 1 tablet by mouth Every 72 (Seventy-Two) Hours for 2 doses. Dispense: 2 tablet; Refill: 0 Assessment & Plan 1. Urinary Tract Infection (UTI). - Symptoms of urinary frequency and burning suggest a UTI. - A urine dipstick test showed leukocytes, indicating possible infection. - A urine culture will be sent for further analysis. - Bactrim will be prescribed for the UTI. Diflucan will be provided for potential yeast infection due to antibiotic use, to be taken if symptoms arise. 2. Fatigue. - Fatigue may be due to various causes including anemia, thyroid dysfunction, or vitamin deficiencies. - Labs will be updated today to check for anemia, thyroid function, and vitamin levels. - If labs are normal, further evaluation for sleep apnea may be considered. - Patient reports no significant issues with sleep but does wake up once to use the bathroom. 3. Hypertension. - Blood pressure is slightly elevated today at 148 systolic. - Home readings are generally within normal limits. - Advised to keep monitoring blood pressure at home aiming for readings below 130/80 mmHg. - Patient reports that blood pressure readings are often high at the urologist's office due to improper measurement technique. 4. Memory Loss. - Currently on donepezil 5 mg for memory issues. - Reports no worsening of symptoms. - The option to increase the dose to 10 mg was discussed but decided to continue the current dose for now. - Patient will monitor for any changes in memory function and consider dosage adjustment if needed. 5. Allergic Rhinitis. - Experiencing drainage and fluid behind the right eardrum, likely due to allergies. - Currently using Nasacort nasal spray and finds Claritin more effective than Pamela. - Will switch from Pamela to Claritin. 6. Health Maintenance. - Due for colon cancer screening. A new Cologuard kit will be ordered as it has been 3 years since the last test. - Routine labs will be updated today. - Patient will continue to monitor blood pressure at home and report any significant changes. Follow Up Return in about 6 months (around 06/19/2025) for Medicare Wellness. Patient or patient sales representative verbalized consent for the use of Ambient Listening during the visit with Farideh Senior DO for chart documentation. 12/17/2024 10:43 EDT Patient was given instructions and counseling regarding her condition or for health maintenance advice. Please see specific information pulled into the AVS if appropriate. documented in this encounter Plan of Treatment Upcoming Encounters Date Type Department Care Team (Late st Contact Info) Description 06/22/2025 11:00 AM EST Office Visit [facility] [address] [place], [place] [address] Farideh Senior DO [address] [place] [address] documented as of this encounter Procedures Procedure Name Priority Date/Time Associated Diagnosis Comments LIPID PANEL W/ CHOL/HDL RATIO Routine 12/17/2024 10:28 AM EDT Essential hypertension Mixed hyperlipidemia Acquired hypothyroidism Frequent urination UTI symptoms Urine leukocytes TSH+FREE T4 Routine 12/17/2024 10:28 AM EDT Essential hypertension Mixed hyperlipidemia Acquired hypothyroidism Frequent urination UTI symptoms Urine leukocytes CBC (NO DIFF) Routine 12/17/2024 10:28 AM EDT Essential hypertension Mixed hyperlipidemia Acquired hypothyroidism Frequent urination UTI symptoms Urine leukocytes URINE CULTURE Routine 12/17/2024 10:28 AM EDT Frequent urination UTI symptoms Urine leukocytes VITAMIN B12 Routine 12/17/2024 10:28 AM EDT Essential hypertension Mixed hyperlipidemia Acquired hypothyroidism Frequent urination UTI symptoms Urine leukocytes COMPREHENSIVE METABOLIC PANEL Routine 12/17/2024 10:28 AM EDT Essential hypertension Mixed hyperlipidemia Acquired hypothyroidism Frequent urination UTI symptoms Urine leukocytes POCT URINALYSIS DIPSTICK, MULTIPRO Routine 12/17/2024 9:56 AM EDT Frequent urination documented in this encounter Results * Cologuard - Stool, Per Rectum (01/08/2025 9:40 AM EDT) Cologuard Negative Negative 01/15/2025 3:23 PM EDT [facility] (CLIA #:[id number]) Comment: The Cologuard (TM) test was performed on this specimen. NEGATIVE TEST RESULT. A negative Cologuard result indicates a low likelihood that a colorectal cancer (CRC) or advanced adenoma (adenomatous polyps with more advanced pre-malignant features) is present. The chance that a person with a negative Cologuard test has a colorectal cancer is less than 1 in 1500 (negative predictive value >99.9%) or has an advanced adenoma is less than 5.3% (negative predictive value 94.7%). These data are based on a prospective cross-sectional study of 10,000 individuals at average risk for colorectal cancer who were screened with both Cologuard and colonoscopy. (Arabella Kaur et al, N Engl J Med 2014;370(14):1286- 1297) The normal value (reference range) for this assay is negative. COLOGUARD RE-SCREENING RECOMMENDATION: Periodic colorectal cancer screening is an important part of preventive healthcare for asymptomatic individuals at average risk for colorectal cancer. Following a negative Cologuard result, the [place] [employer] and U.S. Multi-Society Task Force screening guidelines recommend a Cologuard re-screening interval of 3 years. References: [place] [employer] Guideline for Colorectal Cancer Screening: https://www.cancer.org/cancer/ofhgg-aadhqn-wyagic/lbbuxlyaa-zzfdoqvyx-eguceny/ac s-rec ommendations.html.; Max DK, Ricki CR, Mario AguilarK, Colorectal Cancer Screening: Recommendations for Physicians and Patients from the U.S. Multi-Society Task Force on Colorectal Cancer Screening , Am J Gastroenterology 2017; 112:0865-8278. TEST DESCRIPTION: Composite algorithmic analysis of stool DNA-biomarkers with hemoglobin immunoassay. Quantitative values of individual biomarkers are not reportable and are not associated with individual biomarker result reference ranges. Cologuard is intended for colorectal cancer screening of adults of either sex, 45 years or older, who are at average-risk for colorectal cancer (CRC). Cologuard has been approved for use by the U.S. FDA. The performance of Cologuard was established in a cross sectional study of average-risk adults aged 50-84. Cologuard performance in patients ages 45 to 49 years was estimated by sub-group analysis of near-age groups. Colonoscopies performed for a positive result may find as the most clinically significant lesion: colorectal cancer [4.0%], advanced adenoma (including sessile serrated polyps greater than or equal to 1cm diameter) [20%] or non- advanced adenoma [31%]; or no colorectal neoplasia [45%]. These estimates are derived from a prospective cross-sectional screening study of 10,000 individuals at average risk for colorectal cancer who were screened with both Cologuard and colonoscopy. (Arabella Andrew al, N Engl J Med 2014;370(14):5133-9002.) Cologuard may produce a false negative or false positive result (no colorectal cancer or precancerous polyp present at colonoscopy follow up). A negative Cologuard test result does not guarantee the absence of CRC or advanced adenoma (pre-cancer). The current Cologuard screening interval is every 3 years. ([place] [employer] and U.S. Multi-Society Task Force). Cologuard performance data in a 10,000 patient pivotal study using colonoscopy as the reference method can be accessed at the following location: www.SpiceCSM.T[employer]ored [employer]/results. Additional description of the Cologuard test process, warnings and precautions can be found at www.Epicrisisrd.com. Stool specimen (specimen) Specimen from rectum / Unknown 01/08/2025 9:40 AM EDT 01/09/2025 4:02 PM EDT Farideh Senior DO BODY FLUIDS AND STOOLS MARIELENA HEMPHILL Final Result [facility] (CLIA #:[id number]) [place] [address], * Vitamin B12 (12/17/2024 10:28 AM EDT) Vitamin B-12 631 211 - 946 pg/mL [facility] Comment:Results may be false ly increased if patient taking Biotin. Blood 12/17/2024 10:2 8 AM EDT 12/17/[address] [facility] (AMBULATORY) - 12/23/2024 3:07 AM EDT Performed at: [address] [place], [place] [id number] Air Pollution Analyst: Livan Dejesus MD, Phone: [phone] Patient Fasting: Y Farideh Senior DO LAB BLOOD ORDERABLES Final Result [facility] (AMBULATORY) [address] [place] [address], [facility] [address] [place] [address], * (ABNORMAL) Urine Culture - Urine, Urine, Clean Catch (12/17/2024 10:28 AM EDT) [facility] Urine Culture Final report(A) [facility] Result 1 Escherichia coli(A) [facility] Comment: Cefazolin with an BERNARDINO <=16 predicts susceptibility to the oral agents cefaclor, cefdinir, cefpodoxime, cefprozil, cefuroxime, cephalexin, and loracarbef when used for therapy of uncomplicated urinary tract infections due to E. coli, Klebsiella pneumoniae, and Proteus mirabilis. 50,000-100,000 colony forming units per mL Susceptibility Testing Comment [facility] Comment: S = Susceptible; I = Intermediate; R = Resistant P = Positive; N = Negative MICS are expressed in micrograms per mL Antibiotic RSLT#1 RSLT#2 RSLT#3 RSLT#4 Amoxicillin/Clavulanic Acid S Ampicillin S Cefazolin S Cefepime S Cefoxitin S Cefpodoxime S Ceftriaxone S Ciprofloxacin S Ertapenem S Gentamicin S Levofloxacin S Meropenem S Nitrofurantoin S Piperacillin/Tazobactam S Tetracycline S Tobramycin S Trimethoprim/Sulfa S Urine Urine specimen obtained by clean catch procedure / Unknown 12/17/2024 10:28 AM EDT 12/17/2024 Comment: [place] [facility] (AMBULATORY) - 12/23/2024 3:07 AM EDT Performed at: 02 - [facility] [address] [place], [place] [id number] Air Pollution Analyst: Johnson Rose PhD, Phone: [phone] Patient Fasting: Y Farideh Senior DO MICROBIOLOGY - GENERAL ORDE RABLES Final Result Performing Organization Address [facility]/ZIP Co de Phone Number [facility] (AMBULATORY) [address] [place] [address], [facility] [address] [place] [address], * TSH+Free T4 (12/17/2024 10:28 AM EDT) TSH 0.884 0.270 - 4.200 uIU/mL [facility] Free T4 1.30 0.92 - 1.68 ng/dL [facility] Blood 12/17/2024 10:2 8 AM EDT 12/17/[address] [facility] (AMBULATORY) - 12/23/2024 3:07 AM EDT Performed at: [address] [place] [id number] Air Pollution Analyst: Livan Dejesus MD, Phone: [phone] Patient Fasting: Y Farideh Senior DO LAB BLOOD ORDERABLES Final Result Performing Organization Address [facility]/ZIP Co de Phone Number [facility] (AMBULATORY) [address] [place] [address], [facility] [address] [place] [address], * (ABNORMAL) Lipid Panel With / Chol / HDL Ratio (12/17/2024 10:28 AM EDT) Total Cholesterol 157 0 - 200 mg/dL [facility] Comment: Cholesterol Reference Ranges (U.S. Department of Health and Human Services ATP III Classifications) Desirable <200 mg/dL Borderline High 200-239 mg/dL High Risk >240 mg/dL Triglyceride Reference Ranges (U.S. Department of Health and Human Services ATP III Classifications) Normal <150 mg/dL Borderline High 150-199 mg/dL High 200-499 mg/dL Very High >500 mg/dL HDL Reference Ranges (U.S. Department of Health and Human Services ATP III Classifications) Low <40 mg/dl (major risk factor for CHD) High >60 mg/dl ('negative' risk factor for CHD) LDL Reference Ranges (U.S. Department of Health and Human Services ATP III Classifications) Optimal <100 mg/dL Near Optimal 100-129 mg/dL Borderline High 130-159 mg/dL High 160-189 mg/dL Very High >189 mg/dL LDL is calculated using the NIH LDL-C calculation. Triglycerides 175(H) 0 - 150 mg/dL [facility] HDL Cholesterol 51 40 - 60 mg/dL [facility] VLDL Cholesterol Rasta 30 5 - 40 mg/dL [facility] LDL Chol Calc (RUST) 76 0 - 100 mg/dL [facility] Chol/HDL Ratio 3.08 [facility] Blood 12/17/2024 10:2 8 AM EDT 12/17/[address] [facility] (AMBULATORY) - 12/23/2024 3:07 AM EDT Performed at: [address] [place] [id number] Air Pollution Analyst: Livan Dejesus MD, Phone: [phone] Patient Fasting: Y Farideh Senior DO LAB BLOOD ORDERABLES Final Result [facility] ([facility]ULAT[facility]) [address] [place] [address], [facility] [address] [place] [address], * (ABNORMAL) Comprehensive Metabolic Panel (12/17/2024 10:28 AM EDT) [facility] Glucose 82 65 - 99 mg/dL [facility] BUN 15.0 8.0 - 23.0 mg/dL [facility] Creatinine 0.99 0.57 - 1.00 mg/dL [facility] EGFR Result 63.0 >60.0 mL/min/1.7 3 [facility] Comment: GFR Categories in Chronic Kidney Disease (CKD) GFR Category GFR (mL/min/1.73) Interpretation G1 90 or greater Normal or high (1) G2 60-89 Mild decrease (1) G3a 45-59 Mild to moderate decrease G3b 30-44 Moderate to severe decrease G4 15-29 Severe decrease G5 14 or less Kidney failure (1)In the absence of evidence of kidney disease, neither GFR category G1 or G2 fulfill the criteria for CKD. eGFR calculation 2020 CKD-EPI creatinine equation, which does not include race as a factor BUN/Creatinine Ratio 15.2 7.0 - 25.0 [facility] Sodium 140 136 - 145 mmol/L [facility] Potassium 4.9 3.5 - 5.2 mmol/L [facility] Chloride 100 98 - 107 mmol/L [facility] Total CO2 27.9 22.0 - 29.0 mmol/L [facility] Calcium 9.6 8.6 - 10.5 mg/dL [facility] Total Protein 7.1 6.0 - 8.5 g/dL [facility] Albumin 4.1 3.5 - 5.2 g/dL [facility] Globulin 3.0 gm/dL [facility] A/G Ratio 1.4 g/dL [facility] Total Bilirubin 0.5 0.0 - 1.2 mg/dL [facility] Alkaline Phosphatase 197(H) 39 - 117 U/L [facility] AST (SGOT) 55(H) 1 - 32 U/L [facility] ALT (SGPT) 41(H) 1 - 33 U/L [facility] Blood 12/17/2024 10:2 8 AM EDT 12/17/2024 Narrative [facility] ([facility]) - 12/23/2024 3:07 AM EDT Performed at: [address] [place] [id number] Air Pollution Analyst: Livan Dejesus MD, Phone: [phone] Patient Fasting: Y us Farideh Senior DO LAB BLOOD ORDERABLES Final Result [facility] ([facility]) [address] [place] [address], [facility] [address] [place] [address], * (ABNORMAL) CBC (No Diff) (12/17/2024 10:28 AM EDT) Pathologist [facility] WBC 6.80 3.40 - 10.80 10*3/mm3 [facility] RBC 4.02 3.77 - 5.28 10*6/mm3 [facility] Hemoglobin 12.2 12.0 - 15.9 g/dL [facility] Hematocrit 36.2 34.0 - 46.6 % [facility] MCV 90.0 79.0 - 97.0 fL [facility] MCH 30.3 26.6 - 33.0 pg [facility] MCHC 33.7 31.5 - 35.7 g/dL [facility] RDW 11.9(L) 12.3 - 15.4 % [facility] Platelets 287 140 - 450 10*3/mm3 [facility] Blood 12/17/2024 10:2 8 AM EDT 12/17/2024 Narrative [facility] ([facility]) - 12/23/2024 3:07 AM EDT Performed at: [address] [place] [id number] Air Pollution Analyst: Livan Dejesus MD, Phone: [phone] Patient Fasting: Y Farideh Senior DO LAB BLOOD ORDERABLES Final Result [facility] ([facility]) [address] [place] [address], [facility] [address] [place] [address], * (ABNORMAL) POCT urinalysis dipstick, multipro (12/17/2024 9:56 AM EDT) Pathologist [facility] Color Yellow Yellow, Straw, Dark Yellow, Gayle [facility] Clarity, UA Clear Clear [facility] Glucose, UA Negative Negative mg/dL [facility] Bilirubin Negative Negative [facility] Ketones, UA Negative Negative [facility] Specific [place] 1.010 1.005 - 1.030 [facility] Blood, UA Negative Negative [facility] pH, Urine 6.0 5.0 - 8.0 [facility] Protein, POC Negative Negative mg/dL [facility] Urobilinogen, UA 0.2 E.U./dL Normal, 0.2 E.U./dL [facility] Nitrite, UA Negative Negative [facility] Leukocytes Moderate (2+)(A) Negative [facility] Urine 12/17/2024 9:56 AM EDT Farideh Senior DO POINT OF CARE TEST ORDERABL ES Final Result [facility]
[address] [place] [address], documented in this encounter Visit Diagnoses Diagnosis Essential hypertension- Primary Unspecified essential hypertension Mixed hyperlipidemia Acquired hypothyroidism Unspecified hypothyroidism Frequent urination Urinary frequency UTI symptoms Urine leukocytes Other nonspecific finding on examination of urine Other fatigue Screening for colon cancer Special screening for malignant neoplasms, colon Memory changes Environmental allergies Other allergy, other than to medicinal agents Gastroesophageal reflux disease Esophageal reflux Situational anxiety documented in this encounter Care Teams Product Mgr Relationship Specialty Start Date End [place] [address] PCP - General Family Medicine 01/31/16 documented as of this encounter
--- OUTSIDE RECORDS SUMMARY | 2025-01-29 10:40 | XMS_ITS | Encounter Summary ---
[facility] Address [address] [place] [address] Care Team Providers Care Marine Fuel Dock Attendant Name Role Phone Farideh Senior DO Primary Care Provider Encounter Details Date Type Department Care Team (Late st Contact Info) Description 01/29/2025 10:40 AM EDT Lab [facility] [address] [place] [address] Social History Tobacco Use Types Packs/Day Years [...] AM EST Office Visit [facility] [address] [place] [address] Farideh Senior DO [address] [place] [address] documented as of this encounter Visit Diagnoses Not on filedocumented in this encounter Care Teams Marine Fuel Dock Attendant Relationship Specialty Start Date End Date Farideh Senior DO [address] [place] [address] PCP - General Family Medicine 01/31/16 documented as of this encounter
--- OUTSIDE RECORDS SUMMARY | 2025-02-04 16:30 | XMS_ITS | Encounter Summary ---
[facility] [address] [place] [id number] Care Team Providers Care Director Special Education Name Role Phone Farideh Senior DO Primary Care Provider Reason for Referral * MRI/CAT/PET Scan (Emergency) - Authorized Specialty Diagnoses / Procedures Referred By Mikel t Referred To Contact Radiology Diagnoses Indigestion Early satiety Left lower quadrant abdominal tenderness without rebound tenderness Procedures CT Abdomen Pelvis With Contrast Farideh Senior DO [address] [place] [address] Phone: tel: fax: [facility] [address] [place] [address] Phone: tel: Referral ID Status Reason Start Date Expiration Date V isits Requested Visits Authorized [id number] Authorized 02/04/2025 05/06/2026 1 1 Reason for Visit * Reason Comments Abdominal Pain Nausea, no appetite, started about 2 weeks ago. Feels full and nauseous after eating small amounts, and will start burping but doesn't feel bloated. Encounter Details Date Type Department Care Team (Late Contact Info) Description 02/04/2025 4:30 PM EDT Office Visit [facility] [address] [place] [address] Farideh Senior DO [address] [place] [address] Indigestion (Primary Dx); Early satiety; Left lower quadrant abdominal tenderness without rebound tenderness; Nausea Social History Tobacco Use Types Packs/Day Years [...] Sign Reading Time Taken Comments Blood Pressure 158/82 02/04/2025 4:18 PM EDT Pulse 72 02/04/2025 4:18 PM EDT Temperature 36.7 C (98 F) 02/04/2025 4:18 PM EDT Respiratory Rate 14 02/04/2025 4:18 PM EDT Oxygen Saturation 97% 02/04/2025 4:18 PM EDT Inhaled Oxygen Concentration - - Weight 86.4 kg (190 lb 6.4 oz) 02/04/2025 4:18 P M EDT Height 177.8 cm (5' 10 ) 02/04/2025 4:18 PM EDT Body Mass Index 27.32 02/04/2025 4:18 PM EDT documented in this encounter Progress Notes * Farideh Senior DO - 02/04/2025 4:30 PM EDT Chief Complaint Abdominal Pain (Nausea, no appetite, started about 2 weeks ago. Feels full and nauseous after eating small amounts, and will start burping but doesn't feel bloated. ) Subjective Marilin Funes presents to [facility] History of Present Illness The patient is a 64-year-old female who presents with complaints of abdominal pain. She has been experiencing stomach discomfort for the past few weeks, characterized by a feeling of fullness after eating, nausea, and frequent burping. She reports no heartburn or indigestion. There is no specific abdominal pain, but mentions a general feeling of discomfort. Her appetite is affected, as she feels full quickly during meals, leading to reduced food intake. She has not vomited, but notes that her stools have been slightly looser than usual. She has not had diverticulitis in the past. She has not had her gallbladder removed. She is currently taking pantoprazole for reflux and heartburn. She had a UTI at her last visit, but it seems to have resolved. She is concerned about her liver function due to her brother's recent from liver cancer. She had a vein burst on left leg after picking at the area, thinking it was a tick, on 01/06/2025, which caused significant bleeding. She was unable to stop the bleeding for about an hour. She has been wearing compression socks all the time. She has seen a vascular specialist and was supposed to have surgery, but she has not been able to get in touch with them. She has not taken her memory medication for a couple of days and feels less groggy. She noticed that when she took it the other night, she had to go to bed within half an hour. She often feels groggyin the mornings. She thinks the medication made a little difference with her memory. FAMILY HISTORY Her brother in June with liver cancer. The following portions of the patient's history were reviewed and updated as appropriate: allergies, current medications, past family history, past medical history, past social history, past surgicalhistory, and problem list. Objective Physical Exam Vitals and nursing note reviewed. Cardiovascular: Rate and Rhythm: Normal rate and regular rhythm. Heart sounds: Normal heart sounds. Pulmonary: Effort: Pulmonary effort is normal. Breath sounds: Normal breath sounds. Abdominal: General: Bowel sounds are normal. Palpations: Abdomen is soft. Tenderness: There is abdominal tenderness in the left lower quadrant. There is no guarding or rebound. Neurological: Mental Status: She is alert. Psychiatric: Mood and Affect: Mood normal. Physical Exam Result Review : Results Assessment and Plan Diagnoses and all orders for this visit: 1. Indigestion (Primary) - CT Abdomen Pelvis With Contrast - Vonoprazan Fumarate (Voquezna) 10 MG tablet; Take 1 tablet by mouth Daily. Dispense: 10 tablet; Refill: 0 2. Early satiety - CT Abdomen Pelvis With Contrast - Vonoprazan Fumarate (Voquezna) 10 MG tablet; Take 1 tablet by mouth Daily. Dispense: 10 tablet; Refill: 0 3. Left lower quadrant abdominal tenderness without rebound tenderness - CT Abdomen Pelvis With Contrast 4. Nausea - ondansetron (Zofran) 4 MG tablet; Take 1 tablet by mouth Every 8 (Eight) Hours As Needed for Nausea or Vomiting. Dispense: 20 tablet; Refill: 0 Assessment & Plan 1. Abdominal pain: - Symptoms suggest possible indigestion, with feelings of fullness, nausea, and burping after eating. - Physical exam revealed slight soreness upon palpation of the abdomen. - A CT scan of the abdomen and pelvis will be ordered to rule out diverticulitis. If diverticulitisis confirmed, antibiotic therapy will be initiated. - A change in medication from pantoprazole to Voquezna will be implemented. Samples will be provided. Hold pantoprazole while taking. A prescription for Zofran will also be sent to the pharmacy. 2. Elevated liver enzymes: - Repeat CMP today - The CT scan of the abdomen and pelvis will also help assess the liver. If any questionable areas are found, an MRI or ultrasound may be considered. 3. Medication management: - She has not taken her memory medication for a couple of days and feels less groggy. She noticed that when she took it the other night, she had to go to bed within half an hour. - Advised to continue monitoring her symptoms and resume the medication if necessary. Follow Up No follow-ups on file. Patient or patient lead customer service representative verbalized consent for the use of Ambient Listening during the visit with Farideh Senior DO for chart documentation. 02/04/2025 18:14 EDT Patient was given instructions and counseling regarding her condition or for health maintenance advice. Please see specific information pulled into the AVS if appropriate. documented in this encounter Plan of Treatment Upcoming Encounters Date Type Department Care Team (Late st Contact Info) Description 06/22/2025 11:00 AM EST Office Visit [facility] [address] [place] [phone] Farideh Senior DO [address] [place] [address] Scheduled Orders Name Type Priority Associated Diagnoses Orde r Schedule CT Abdomen Pelvis With Contrast Imaging STAT Indigestion Early satiety Left lower quadrant abdominal tenderness without rebound tenderness Ordered: 02/04/2025 documented as of this encounter Visit Diagnoses Diagnosis Indigestion- Primary Dyspepsia and other specified disorders of function of stomach Early satiety Left lower quadrant abdominal tenderness without rebound tenderness Nausea Nausea alone documented in this encounter Care Teams Director Special Education Relationship Specialty Start Date End Date Farideh Senior DO [address] [place] [address] PCP - General Family Medicine 01/31/16 documented as of this encounter
--- NOTE | 2025-02-06 08:05 | CT_ITS ---
PROCEDURE INFORMATION: Exam: CT Abdomen And Pelvis With Contrast Exam date and time: 02/06/2025 8:57 AM Age: 64 years old Clinical indication: Nausea; Abdominal pain; Additional info: Llq pain/ nauseas TECHNIQUE: Imaging protocol: Computed tomography of the abdomen and pelvis with contrast. Radiation optimization: All CT scans at this facility use at least one of these dose optimization techniques: automated exposure control; mA and/or kV adjustment per patient size (includes targeted exams where dose is matched to clinical indication); or iterative reconstruction. Contrast material: ISOVUE; Contrast volume: 75 ml; Contrast route: IV; COMPARISON: No relevant prior studies available. FINDINGS: Liver: Hepatic steatosis noted. Gallbladder and biliary ducts: Normal. No calcified stones. No ductal dilation. Pancreas: No peripancreatic fluid stranding. No main pancreatic ductal dilation. Spleen: No splenomegaly. Adrenal glands: The adrenal glands are normal. Kidneys and ureters: Nephrograms are symmetric. No nephrolithiasis or hydroureteronephrosis on either side. No solid lesions Stomach and bowel: Scattered colonic diverticula without acute inflammatory change. Appendix: No evidence of appendicitis. Intraperitoneal space: There is no evidence of free intraperitoneal or pelvic fluid. Vasculature: Portal vein is patent. Lymph nodes: Unremarkable. No enlarged lymph nodes. Urinary bladder: Urinary bladder is unremarkable. Urinary bladder is unremarkable. Reproductive: Unremarkable as visualized. Bones/joints: No acute osseous abnormality. Multilevel degenerative changes of the included spine. Soft tissues: Unremarkable. IMPRESSION: 1. No acute abnormality in the abdomen or pelvis 2. Scattered colonic diverticula without acute inflammatory change.
--- OUTSIDE RECORDS SUMMARY | 2025-02-06 08:05 | XMS_ITS | Encounter Summary ---
[facility] Address [address] [place] [address] Care Team Providers Care President & Founder Name Role Phone Farideh Senior DO Primary Care Provider [phone] Encounter Details Date Type Department Care Team (Latest Contact Info) Description 02/04/2025 Travel Social History Tobacco Use Types Packs/Day [...] Description 06/22/2025 11:00 AM EST Office Visit [facility] [address] [place] [address] Farideh Senior DO [address] [place] [address] documented as of this encounter Visit Diagnoses Not on filedocumented in this encounter Care Teams President & Founder Relationship Specialty Start Date End Date Farideh Senior DO [address] [place] [address] PCP - General Family Medicine 01/31/16 documented as of this encounter
--- OUTSIDE RECORDS SUMMARY | 2025-02-06 08:05 | XMS_ITS | Clinical Summary ---
Author Organization [facility] Address [address] [place] [id number] Care Team Providers Care Golf Course Laborer Name Role Phone Unavailable Primary Care Provider [...] 2008 [facility]-Zoster Vaccines (1 of 2) 2008 [facility]-LUGPA-09 Vaccine ( 20 24-25 season) 2024 [facility]-Influenza [...]
--- OUTSIDE RECORDS SUMMARY | 2025-02-06 08:05 | XMS_ITS | Encounter Summary ---
[facility] [address] [place] [address] Care Team Providers Care Fraud Manager Name Role Phone Farideh Senior DO Primary Care Provider Encounter Details Date Type Department Care Team (Late st Contact Info) Description 02/01/2025 Results Follow-Up [facility] [address] [place] [address] Farideh Senior DO [address] [place] [address] Social History Tobacco Use Types [...] Description 06/22/2025 11:00 AM EST Office Visit [facility] [address] [place] [address] Farideh Senior DO [address] [place] [address] documented as of this encounter Visit Diagnoses Not on filedocumented in this encounter Care Teams Fraud Manager Relationship Specialty Start Date End Date Farideh Senior DO [address] [place] [address] PCP - General Family Medicine 01/31/16 documented as of this encounter
--- OUTSIDE RECORDS SUMMARY | 2025-02-06 08:05 | XMS_ITS | Encounter Summary ---
[facility] Address [address] [place] [address] Care Team Providers Care Pony Worker Name Role Phone Farideh Senior DO Primary Care Provider Encounter Details Date Type Department Care Team (Late st Contact Info) Description 02/03/2025 Results Follow-Up [facility] [address] [place] [address] Faridhe Senior DO [address] [place] [address] Social History Tobacco Use Types [...] Description 06/22/2025 11:00 AM EST Office Visit [facility] [address] [place] [address] Farideh Senior DO [address] [place] [address] documented as of this encounter Visit Diagnoses Not on filedocumented in this encounter Care Teams Pony Worker Relationship Specialty Start Date End Date Farideh Senior DO [address] [place] [address] PCP - General Family Medicine 01/31/16 documented as of this encounter
--- OUTSIDE RECORDS SUMMARY | 2025-02-06 08:05 | XMS_ITS | Encounter Summary ---
[facility] [address] [place] [address] Care Team Providers Care Surgical Garment Assembly Supervisor Name Role Phone Farideh Senior DO Primary Care Provider [phone] Encounter Details Date Type Department Care Team (Latest Contact Info) Description 01/29/2025 Travel Social History Tobacco Use Types Packs/Day [...] Description 06/22/2025 11:00 AM EST Office Visit [facility] [address] [place] [address] Farideh Senior DO [address] [place] [address] documented as of this encounter Visit Diagnoses Not on filedocumented in this encounter Care Teams Surgical Garment Assembly Supervisor Relationship Specialty Start Date End Date Farideh Senior DO [address] [address] PCP - General Family Medicine 01/31/16 documented as of this encounter
--- OUTSIDE RECORDS SUMMARY | 2025-02-06 08:06 | XMS_ITS | Encounter Summary ---
[facility] Address [address] [place] [address] Care Team Providers Care Cross Country And Track And Field Coach Name Role Phone Farideh Senior DO Primary Care Provider [phone] Encounter Details Date Type Department Care Team [...] [facility] [address] [place] [address] Farideh Senior DO [address] [place] [address] documented as of this encounter Visit Diagnoses Not on filedocumented in this encounter Care Teams Cross Country And Track And Field Coach Relationship Specialty Start Date End Date Farideh Senior DO [address] [place] [address] PCP - General Family Medicine 01/31/16 documented as of this encounter
--- OUTSIDE RECORDS SUMMARY | 2025-02-06 08:06 | XMS_ITS | Clinical Summary ---
Author Organization [facility] Address [address] [place] [phone] Care Team Providers Care Plant Equipment Engineer Name Role Phone Nadeen, Farideh Joy DO Primary Care Provider Allergies Active Allergy Reactions Criticality Noted Date Comments Ciprofloxacin Rash Low 01/31/2016 Indomethacin Headache Low 01/31/2016 Atorvastatin Myalgia Low 01/31/2016 Nirmatrelvir-Ritonavir Anaphylaxis,Diarr hea ,Nausea Only High 02/13/2024 Metallic taste, throat felt like it was closing Simvastatin Myalgia Low 05/06/2018 Ezetimibe-Simvastatin Myalgia Low 01/31/2016 Medications estradiol (ESTRACE) 2 MG tablet Take 1 tablet by mouth Daily. 016 Active aspirin 81 MG EC tablet Take [...] DIRECTED FOR DENTURE USE 473 mL 2 023 Active cyclobenzaprine (FLEXERIL) 5 MG tabletIndications :Thoracolumbar back pain Take 1 tablet by mouth 3 (Three) Times a Day As Needed for Muscle Spasms. 30 tablet 024 Active estradiol (VAGIFEM) 10 MCG tablet vaginal tablet Insert 1 tablet into the vagina 2 (Two) Times a Week. 024 Active naproxen (NAPROSYN) 500 MG tabletIndications :Arthralgia, unspecified joint TAKE 1 TABLET BY MOUTH 2 (TWO) TIMES A DAY NEEDED FOR MODERATE PAIN. TAKE WITH FOOD 60 tablet 2 Active carvedilol (COREG) 6.25 MG tabletIndications :Essential hypertension Take 1 tablet by mouth Daily. 90 tablet 1 025 Active donepezil (ARICEPT) 5 MG tabletIndications :Memory changes Take 1 tablet by mouth Every Night. 90 tablet 3 025 Active olmesartan-hydroc hlorothiazide (BENICAR HCT) 40-12.5 MG per tabletIndications :Essential hypertension Take 1 tablet by mouth Daily. 90 tablet 1 025 Active pravastatin (PRAVACHOL) 40 MG tabletIndications :Mixed hyperlipidemia Take 1 tablet by mouth Daily. 90 tablet 3 025 Active ALPRAZolam (XANAX) 0.5 MG tabletIndications :Situational anxiety Take 1 tablet by mouth 2 (Two) Times a Day As Needed for Anxiety. 10 tablet 025 Active loratadine (Claritin) 10 MG tabletIndications :Environmental allergies Take 1 tablet by mouth Daily. 90 tablet 3 025 Active Synthroid 125 MCG tablet TAKE 1 TABLET BY MOUTH EVERY MORNING 30 tablet 025 Active ondansetron (Zofran) 4 MG tabletIndications :Nausea Take 1 tablet by mouth Every 8 (Eight) Hours As Needed for Nausea or Vomiting. 20 tablet 025 Active Vonoprazan Fumarate (Voquezna) 10 MG tabletIndications :Indigestion,Adan y satiety Take 1 tablet by mouth Daily. 10 tablet 025 Active ondansetron (Zofran) 4 MG tablet Take 1 tablet by mouth Every 8 (Eight) Hours As Needed for Nausea or Vomiting. 15 tablet 024 2024 Discontinued(R eorder) Synthroid 125 MCG tablet TAKE 1 TABLET BY MOUTH EVERY MORNING 30 tablet 025 2024 Discontinued pantoprazole (PROTONIX) 40 MG EC tabletIndications :Gastroesophageal reflux disease Take 1 tablet by mouth Daily. 90 tablet 3 025 2024 Discontinued(A lternate therapy) nitrofurantoin, macrocrystal-mono hydrate, (Macrobid) 100 MG capsule Take 1 capsule by mouth 2 (Two) Times a Day for 7 days. 14 capsule 025 2024 Active Problems Problem Noted Date Diagnosed Date Ataxia 07/23/2020 Keeps losing balance 07/23/2020 Family history of early CAD 07/23/2020 Memory changes 07/23/2020 Tension headache 08/06/2017 Chronic pain of left knee 08/06/2017 Gastroesophageal reflux disease 08/06/2017 Essential hypertension 08/06/2017 Acquired hypothyroidism 08/06/2017 Mixed hyperlipidemia 08/06/2017 Seasonal allergic rhinitis due to pollen 017 Encounters Date Type Department Care Team Description 02/04/2025 4:30 PM EDT Office Visit [facility] [address] [address] Farideh Senior, Indigestion (Primary Dx); Early satiety; Left lower quadrant abdominal tenderness without rebound tenderness; Nausea 02/04/2025 Travel 02/03/2025 Results Follow-Up [facility] [address] [address] Farideh Senior DO 02/01/2025 Results Follow-Up [facility] [address] [address] Farideh Senior DO 01/29/2025 10:40 AM EDT Lab [facility] [address] [address] 01/29/2025 Travel 01/12/2025 Refill [facility] [address] [place] [address] Farideh Senior DO 01/04/2025 Results Follow-Up [facility] [address], [place] [address] Farideh Senior DO Results 12/17/2024 9:30 AM EDT Office Visit [facility] [address] [place] [address] Farideh Senior DO Essential hypertension (Primary Dx); Mixed hyperlipidemia; Acquired hypothyroidism; Frequent urination; UTI symptoms; Urine leukocytes; Other fatigue; Screening for colon cancer; Memory changes; Environmental allergies; Gastroesophageal reflux disease; Situational anxiety 12/17/2024 Travel 12/09/2024 Refill [facility] [address] [place] [address] Farideh Senior DO Mixed hyperlipidemia 11/24/2024 Refill [facility] [address] [place] [address] Farideh Senior DO Memory changes 11/23/2024 Refill [facility] [address] [place] [address] Farideh Senior DO Essential hypertension from Last 3 Months [...] Brother 2 Asthma Father Jamie Diabetes Mother Steff Heart attack Mother Steff Heart disease Mother Steff Hyperlipidemia Mother Steff Hypertension Mother [place] Kidney disease Mother Steff No Known Problems Sister Relation Name Status Comments Brother 1 Alive Brother 2 Father Jamie Mother Steff Sister Social History Tobacco Use Types Packs/Day [...] Mass Index 27.32 02/04/2025 4:18 PM EDT Plan of Treatment Upcoming Encounters Date Type Department Care Team (Late st Contact Info) Description 06/22/2025 11:00 AM EST Office Visit [facility] [address] [address] Farideh Senior DO [address] [address] Health Maintenance Due Date Last Done Comments COLON CANCER SCREENING [address] COLONOGRAPHY 2003 FECAL OCCULT BLOOD TEST 2003 FIT Testing (1 year) 2003 ZOSTER VACCINE (2 of 3) 05/16/2017 03/21/2017, 03/21 COLONOSCOPY 06/11/2020 06/11/2010 (Patient-Reported (Performed Externally)) COVID-19 Vaccine ( season) 2025 06/23/2022, 09/23/2021, 05/13/2021, Additional history exists Postponed from 02/10/2024 (Product Unavailable) INFLUENZA VACCINE 03/11/2025 06/06/2023, , 03/19/2020, Additional history exists ANNUAL WELLNESS VISIT 06/19/2025 06/19/2024 , 06/19/2024, 06/06/2023, Additional history exists DXA SCAN 07/05/2025 07/05/2023 LIPID PANEL 12/17/2025 12/17/2024, 01/0 02/2025, 06/06/2023, Additional history exists MAMMOGRAM 01/23/2027 01/23/2025, 02/0 08/2024, 01/10/2024, Additional history exists COLOGUARD 01/09/2028 01/08/2025, 04/0 11/2021, 08/14/2021, Additional history exists COLORECTAL CANCER SCREENING 01/09/2028 TDAP/TD VACCINES (2 - Td or Tdap) 02/19/2029 02/19/2019 HEPATITIS C SCREENING Completed 02/25/2019 Pneumococcal Vaccine 50+ Completed 06/06/2023 Procedures Procedure Name Priority Date/Time Associated Diagnosis Comments COMPREHENSIVE METABOLIC PANEL Routine 02/04/2025 3:54 PM EDT CONV SPECIMEN STATUS REPORT Routine 01/29/2025 10:45 AM EDT COMPREHENSIVE METABOLIC PANEL Routine 01/29/2025 10:45 AM EDT Elevated LFTs MAMMO DIAGNOSTIC DIGITAL TOMOSYNTHESIS LEFT W CAD Routine 01/23/2025 Abnormal mammogram COLOGUARD Routine 01/08/2025 9:40 AM EDT Screening [...] Routine 12/17/2024 9:56 AM EDT Frequent urination DEXA BONE DENSITY AXIAL Routine 07/05/2023 Postmenopausal Screening for osteoporosis from Last 3 Months or Most Recently Relevant to Health Maintenance Results * (ABNORMAL) Comprehensive Metabolic Panel (02/04/2025 3:54 PM EDT) Only the most recent of3 resultswithin the time period is included. Pathologist [facility] Glucose 92 70 - 99 mg/dL [facility] BUN 13 8 - 27 mg/dL [facility] Creatinine 0.91 0.57 - 1.00 mg/dL [facility] EGFR Result 70 >59 mL/min/1.7 3 [facility] BUN/Creatinine Ratio 14 12 - 28 [facility] Sodium 140 134 - 144 mmol/L [facility] Potassium 4.5 3.5 - 5.2 mmol/L [facility] Chloride 99 96 - 106 mmol/L [facility] Total CO2 27 20 - 29 mmol/L [facility] Calcium 9.8 8.7 - 10.3 mg/dL [facility] Total Protein 7.3 6.0 - 8.5 g/dL [facility] Albumin 4.5 3.9 - 4.9 g/dL [facility] Globulin 2.8 1.5 - 4.5 g/dL [facility] Total Bilirubin 0.4 0.0 - 1.2 mg/dL [facility] Alkaline Phosphatase 164(H) 44 - 121 IU/L [facility] AST (SGOT) 48(H) 0 - 40 IU/L [facility] ALT (SGPT) 34(H) 0 - 32 IU/L [facility] 02/04/2025 3:54 PM EDT 02/04/2025 N[facility]ative [facility] - 02/05/2025 10:36 AM EDT Performed at: - [address] [id number] Mail Handlers Supervisor: Johnson Rose PhD, Phone: [phone] Patient Fasting: N us Farideh Senior DO LAB BLOOD ORDERABLES Final Result [facility] [address] [place] [address], [place] [phone] [facility] [address] [place] [address], * Specimen Status Report (01/29/2025 10:45 AM EDT) Specimen Status CANCELED [facility] Comment: [facility] was unable to collect sufficient specimen to perform the following test(s), and is providing the patient with re-collection instructions. TEST: [id number] Comp. Metabolic Panel (14) Result canceled by the ancillary. 01/29/2025 10:4 5 AM EDT 01/29/2025 Narrative [facility] - 01/30/2025 4:11 PM EDT Performed at: 02 - [facility] [address] [facility], [place], [place] [id number] Mail Handlers Supervisor: Johnson Rose PhD, Phone: [phone] Patient Fasting: Y Farideh Senior DO LAB BLOOD ORDERABLES Edited Result - Final [facility] ([facility]BULATORY) [address] [place] [address], [place] [phone] [facility] [address] [place] [address], [place] [phone] * Mammo Diagnostic Digital Tomosynthesis Left With CAD (01/23/2025) Anatomical Region Laterality Modality Breast Left Mammography Farideh Benita Nadeenraysa BRODERICK IMG MAMMOGRAPHY ORDERABLES Final Result * Cologuard - Stool, Per Rectum (01/08/2025 9:40 AM EDT) Cologuard Negative Negative 01/15/2025 3:23 PM EDT [facility] (CLIA #:[id number]) Comment: The Cologuard (TM) test was performed [...] cancer. Following a negative Cologuard result, the [place] [employer] and U.S. Multi-Society Task Force screening guidelines recommend a Cologuard re-screening interval of 3 years. References: [place] [employer] Guideline for Colorectal Cancer Screening: https://www.cancer.org/cancer/wkwqp-ecjuho-uqrflf/zukaqlmza-srrfqxpge-ptgrmpd/ac s-rec ommendations.html.; Max HOLLINS, Ricki LUQUE, Mario RUEDA, Colorectal Cancer Screening: Recommendations for Physicians and Patients from the U.S. Multi-Society Task Force on Colorectal Cancer Screening , Am J Gastroenterology 2017; 112:7800-8072. TEST DESCRIPTION: Composite algorithmic analysis of stool [...] Kaur et al, N Engl J Med 2014;370(14):7608-7292.) Cologuard may produce a false negative or false positive result (no colorectal cancer or precancerous polyp present at colonoscopy follow up). A negative Cologuard test result does not guarantee the absence of CRC or advanced adenoma (pre-cancer). The current Cologuard screening interval is every 3 years. ([place] [employer] Society and U.S. Multi-Society Task Force). Cologuard performance data in a 10,000 patient pivotal study using colonoscopy as the reference method can be accessed at the following location: www.[employer]/results. Additional description of the Cologuard test process, warnings and precautions can be found at www.cologuard.com. Stool specimen (specimen) Specimen from rectum / Unknown 01/08/2025 9:40 AM EDT 01/09/2025 4:02 PM EDT Farideh Senior DO BODY FLUIDS AND STOOLS MARIELENA HEMPHILL Final Result [facility] (CLIA #:[id number]) [place] [address], * (ABNORMAL) Lipid Panel With / Chol [...] - 12/23/2024 3:07 AM EDT Performed at: [address] [place] [id number] Mail Handlers Supervisor: Livan Dejesus MD, Phone: [phone] Patient Fasting: Y [facility] Benita Nadeen LAB BLOOD ORDERABLES Final Result Performing Organization Address [facility] de Phone Number [facility]) [address] [place] [address], [facility] [address] [place] [address], [place] [phone] * TSH+Free T4 (12/17/2024 10:28 AM EDT) [facility] TSH 0.884 0.270 - 4.200 uIU/mL [facility] Free T4 1.30 0.92 - 1.68 ng/dL [facility] Blood 12/17/2024 10:2 8 AM EDT 12/17/2024 Narrative [facility] ([facility]) - 12/23/2024 3:07 AM EDT Performed at: [address] [place] [id number] Mail Handlers Supervisor: Livan Dejesus MD, Phone: [phone] Patient Fasting: Y [facility] Benita Senior DO LAB BLOOD ORDERABLES Final Result Performing Organization Address [facility] de Phone Number [facility] ([facility]) [address] [place] [address], [facility] [address] [place] [address], [place] [phone] * (ABNORMAL) CBC (No Diff) (12/17/2024 10:28 AM EDT) [facility] WBC 6.80 3.40 - 10.80 10*3/mm3 [facility] [...] - 12/23/2024 3:07 AM EDT Performed at: [address] [place] [id number] Mail Handlers Supervisor: Livan Dejesus MD, Phone: [phone] Patient Fasting: Y Farideh Senior DO LAB BLOOD ORDERABLES Final Result [facility]) [address] [place] [id number], [place] [phone] [facility] [address] [place] [address], [place] [phone] * (ABNORMAL) Urine Culture - Urine, Urine, Clean Catch (12/17/2024 10:28 AM EDT) [facility] Urine Culture Final report(A) [facility] Result [...] 10:28 AM EDT 12/17/2024 Comment: Narrative [facility] (AMBULATORY) - 12/23/2024 3:07 AM EDT Performed at: 02 - [facility] [address] [place] [id number] Mail Handlers Supervisor: Johnson Rose PhD, Phone: [phone] Patient Fasting: Y Farideh Senior DO MICROBIOLOGY - GENERAL ORDE RABLES Final Result Performing Organization Address [facility]/ZIP Co de Phone Number [facility] [address] [place] [address], [place] [phone] [facility] [address] [place] [address], [place] [phone] * Vitamin B12 (12/17/2024 10:28 AM EDT) [facility] Vitamin B-12 631 211 - 946 pg/mL [facility] Comment:Results may be false ly increased if patient taking Biotin. Blood 12/17/2024 10:2 8 AM EDT 12/17/2024 Narrative [facility] ([facility]BUL[facility]) - 12/23/2024 3:07 AM EDT Performed at: [address] [place] [id number] Mail Handlers Supervisor: Livan Dejesus MD, Phone: [phone] Patient Fasting: Y Farideh Senior DO LAB BLOOD ORDERABLES Final Result Performing Organization Address City/[facility]/ZIP Co de Phone Number [facility] [address] [place] [address], [place] [phone] [facility] [address] [place] [address], [place] [phone] * (ABNORMAL) POCT urinalysis dipstick, multipro (12/17/2024 9:56 AM EDT) Color Yellow Yellow, Straw, Dark Yellow, Gayle [facility] Clarity, UA Clear Clear [facility] Glucose, UA Negative Negative mg/dL [facility] Bilirubin Negative Negative [facility] Ketones, UA Negative Negative [facility] Specific [place] 1.010 1.005 - 1.030 [facility] Blood, UA Negative Negative [facility] pH, Urine 6.0 5.0 - 8.0 [facility] Protein, POC Negative Negative mg/dL [facility] Urobilinogen, UA 0.2 E.U./dL Normal, 0.2 E.U./dL [facility] Nitrite, UA Negative Negative [facility] Leukocytes Moderate (2+)(A) Negative [facility] Urine 12/17/2024 9:56 AM EDT Farideh Senior DO POINT OF CARE TEST ORDERABL ES Final Result [facility]
[address] [place] [id number], * DEXA Bone Density Axial (07/05/2023) Anatomical Region Laterality Modality Wrist, Hip, L-spine N/A Radiographic Imaging Farideh Senior DO IMG DXA ORDERABLES Final Re sult from Last 3 Months or Most Recently Relevant to Health Maintenance Insurance [employer] MED[employer]ARE [employer]VANTAGE PPO Care Teams Plant Equipment Engineer Relationship Specialty Start Date End Date Farideh Senior DO [address] [place] [address] PCP - General Family Medicine 01/31/16
--- OUTSIDE RECORDS SUMMARY | 2025-02-06 08:06 | XMS_ITS | Encounter Summary ---
[facility] Address [address] [place] [phone] Care Team Providers Care Rn Examiner Name Role Phone Farideh Senior DO Primary Care Provider Reason for Visit * Reason Onset Date Comments Results 01/04/2025 Encounter Details Date Type Department Care Team (Late st Contact Info) Description 01/04/2025 Results Follow-Up [facility] [address] [place] [address] Farideh Senior DO [address] [place] [address] Results Social History Tobacco Use [...] 11:00 AM EST Office Visit [facility] [address] [place] [address] Farideh Senior Benita, DO [address] [place] [address] documented as of this encounter Results * Comprehensive metabolic panel (01/29/2025 10:45 AM EDT) Glucose CANCELED mg/dL [facility] Comment: [facility] was unable to collect sufficient specimen to perform the following test(s), and is providing the patient with re-collection instructions. Result canceled by the ancillary. BUN CANCELED [facility] Comment: Test not performed Result canceled by the ancillary. Creatinine CANCELED [facility] Comment: Test not performed Result canceled by the ancillary. Sodium CANCELED [facility] Comment: Test not performed Result canceled by the ancillary. Potassium CANCELED [facility] Comment: Test not performed Result canceled by the ancillary. Chloride CANCELED [facility] Comment: Test not performed Result canceled by the ancillary. Total CO2 CANCELED [facility] Comment: Test not performed Result canceled by the ancillary. Calcium CANCELED [facility] Comment: Test not performed Result canceled by the ancillary. Total Protein CANCELED [facility] Comment: Test not performed Result canceled by the ancillary. Albumin CANCELED [facility] Comment: Test not performed Result canceled by the ancillary. Total Bilirubin CANCELED [facility] Comment: Test not performed Result canceled by the ancillary. Alkaline Phosphatase CANCELED [facility] Comment: Test not performed Result canceled by the ancillary. AST (SGOT) CANCELED [facility] Comment: Test not performed Result canceled by the ancillary. ALT (SGPT) CANCELED [facility] Comment: Test not performed Result canceled by the ancillary. Blood 01/29/2025 10:4 5 AM EDT 01/29/2025 [facility] - 01/30/2025 4:11 PM EDT Performed at: 01 - [address] [id number] Phd Internship: Rodrigo Mcintyre MD, Phone: [phone] Patient Fasting: Y Farideh Senior DO LAB BLOOD ORDERABLES Edited Result - Final [facility] [address] [place] [address], [place] [phone] [facility] [address] [place] [address], [place] [phone] documented in this encounter Visit Diagnoses Diagnosis Elevated LFTs- Primary Other abnormal blood chemistry documented in this encounter Care Teams Rn Examiner Relationship Specialty Start Date End Date Farideh Senior DO [address] [place] [id number] PCP - General Family Medicine 01/31/16 documented as of this encounter
--- OUTSIDE RECORDS SUMMARY | 2025-02-06 08:06 | XMS_ITS | Encounter Summary ---
[facility] Address [address] [place] [address] Care Team Providers Care Roller Name Role Phone Farideh eSnior DO Primary Care Provider Reason for Visit * Reason Comments Med Refill Encounter Details Date Type Department Care Team (Late st Contact Info) Description 01/12/2025 Refill [facility] [address] [place] [address] Farideh Senior DO [address] [place] [address] Social History Tobacco Use Types [...] Description 06/22/2025 11:00 AM EST Office Visit [facility] [address] [place] [address] Farideh Senior DO [address] [place] [address] documented as of this encounter Visit Diagnoses Not on filedocumented in this encounter Care Teams Roller Relationship Specialty Start Date End Date Farideh Senior DO [address] [place] [place] [address] PCP - General Family Medicine 01/31/16 documented as of this encounter
--- OUTSIDE RECORDS SUMMARY | 2025-02-06 08:06 | XMS_ITS | Encounter Summary ---
[facility] Organization [facility] Address [address] [place] [address] Care Team Providers Care Supervisor Industrial Arts Education Name Role Phone Farideh Senior DO Primary Care Provider Reason for Visit * Reason Comments Med Refill Encounter Details Date Type Department Care Team (Late st Contact Info) Description 12/09/2024 Refill [facility] [address] [place] [address] Farideh Senior DO [address] [place] [address] Mixed hyperlipidemia Social History Tobacco [...] Description 06/22/2025 11:00 AM EST Office Visit [facility] [address] [place] [address] Farideh Senior DO [address] [place] [address] documented as of this encounter Visit Diagnoses Diagnosis Mixed hyperlipidemia documented in this encounter Care Teams Supervisor Industrial Arts Education Relationship Specialty Start Date End Date Farideh Senior DO [address] [place] [address] PCP - General Family Medicine 01/31/16 documented as of this encounter
[2025-02-06] MEDS: IOPAMIDOL-370 (76%);100ML BOTTLE 75 ML IV (09:03)
[2025-02-06] MEDS: SODIUM CHLORIDE 0.9% 10ML SYR (RAD ONLY) 10 ML IV (09:03)
== END 2025-02-06 23:59 | disposition home or self-care (01) ==
LOC: RAD 08:03
PROVIDERS: PCP Family Medicine; Visit Provider Family Medicine
DX: K57.30 Diverticulosis of large intestine without perforation or abscess without bleeding (principal); K30 Functional dyspepsia; R68.81 Early satiety; R11.0 Nausea
CPT/HCPCS: 74177; Q9967

== ENCOUNTER 2025-03-24 11:48 | Outpatient (CLI) | payer MEDICARE, SELFPAY ==
--- OUTSIDE RECORDS SUMMARY | 2025-01-29 10:40 | XMS_ITS | Encounter Summary ---
[facility] Address [address] [place] [address] Care Team Providers Care Kiln Remover Name Role Phone Farideh Senior DO Primary Care Provider Encounter Details Date Type Department Care Team (Late st Contact Info) Description 01/29/2025 10:40 AM EDT Lab [facility] [address] [place] [address] Social History Tobacco Use Types [...] Description 06/22/2025 11:00 AM EST Office Visit [facility] [address] [place] [address] Farideh Senior DO [address] [place] [address] documented as of this encounter Visit Diagnoses Not on filedocumented in this encounter Care Teams Kiln Remover Relationship Specialty Start Date End Date Farideh Senior DO [address] [place] [address] PCP - General Family Medicine 01/31/16 documented as of this encounter
--- OUTSIDE RECORDS SUMMARY | 2025-02-04 16:30 | XMS_ITS | Encounter Summary ---
[facility] [address] [place] [id number] Care Team Providers Care Hospital Administrator Name Role Phone Farideh Senior DO Primary Care Provider Reason for Visit * Reason Comments Abdominal Pain Nausea, no appetite, started about 2 weeks ago. Feels full and nauseous after eating small amounts, and will start burping but doesn't feel bloated. Encounter Details Date Type Department Care Team (Late st Contact Info) Description 02/04/2025 4:30 PM EDT Office Visit [facility] [address] [facility] [place] [address] Farideh Senior DO [address] [facility] [place] [address] Indigestion (Primary Dx); Early satiety; Left lower [...] encounter Progress Notes * Farideh Senior, - 02/04/2025 4:30 PM EDT Chief Complaint Abdominal Pain (Nausea, no appetite, started about 2 weeks ago. Feels full and nauseous after eating small amounts, and will start burping but doesn't feel bloated. ) Subjective Marilin Funes presents to [facility] History of Present Illness The [...] No follow-ups on file. Patient or patient uniforms sales representative verbalized consent for the use [...] Description 06/22/2025 11:00 AM EST Office Visit [facility] [address] [place] [address] Farideh Senior DO [address] [place] [address] documented as of this encounter Procedures Procedure Name Priority Date/Time Associated Diagnosis Comments SCANNED - IMAGING 02/06/2025 documented in this encounter Results * IMAGING SCANNED (02/06/2025) Anatomical Region Laterality Modality Radiographic Jeniffer ging Farideh Senior DO IMG DIAGNOSTIC IMAGING ORDE JOBY Final Result documented in this encounter Visit Diagnoses Diagnosis Indigestion- Primary Dyspepsia and other specified disorders of function of stomach Early satiety Left lower quadrant abdominal tenderness without rebound tenderness Nausea Nausea alone documented in this encounter Care Teams Hospital Administrator Relationship Specialty Start Date End Date Farideh Senior DO [address] [place] [address] PCP - General Family Medicine 01/31/16 documented as of this encounter
--- OUTSIDE RECORDS SUMMARY | 2025-02-13 10:40 | XMS_ITS | Encounter Summary ---
[facility] Address [address] [place] [address] Care Team Providers Care Rubber Goods Finisher Name Role Phone Farideh Senior DO Primary Care Provider Encounter Details Date Type Department Care Team (Late st Contact Info) Description 02/13/2025 10:40 AM EDT Lab [facility] [address] [place] [address] Social History Tobacco Use Types [...] Description 06/22/2025 11:00 AM EST Office Visit [facility] [address] [place] [address] Farideh Senior DO [address] [place] [address] documented as of this encounter Visit Diagnoses Not on filedocumented in this encounter Care Teams Rubber Goods Finisher Relationship Specialty Start Date End Date Farideh Senior DO [address] [place] [address] PCP - General Family Medicine 01/31/16 documented as of this encounter
--- OUTSIDE RECORDS SUMMARY | 2025-03-24 11:50 | XMS_ITS | Encounter Summary ---
[facility] Address [address] [place] [address] Care Team Providers Care Supervisor Personnel Clerks Name Role Phone Fairdeh Senior DO Primary Care Provider Encounter Details Date Type Department Care Team (Late st Contact Info) Description 02/01/2025 Results Follow-Up [facility] [address] [place] [address] Farideh Senior DO [address] [address] Social History Tobacco Use Types [...] Description 06/22/2025 11:00 AM EST Office Visit [facility] [address] [place] [address] Farideh Senior DO [address] [place] [address] documented as of this encounter Visit Diagnoses Not on filedocumented in this encounter Care Teams Supervisor Personnel Clerks Relationship Specialty Start Date End Date Farideh Senior DO [address] [place] [address] PCP - General Family Medicine 01/31/16 documented as of this encounter
--- OUTSIDE RECORDS SUMMARY | 2025-03-24 11:50 | XMS_ITS | Encounter Summary ---
[facility] [address] [place] [address] Care Team Providers Care Balloon Design Printer Name Role Phone Farideh Senior DO Primary Care Provider Encounter Details Date Type Department Care Team (Late st Contact Info) Description 02/03/2025 Results Follow-Up [facility] MEDICINE [address] [place] [place] [address] Farideh Senior DO [address] [place] [address] Social History Tobacco Use Types [...] 06/22/2025 11:00 AM EST Office Visit [facility] MEDICINE [address] [place] [address] Farideh Senior DO [address] [place] [address] documented as of this encounter Visit Diagnoses Not on filedocumented in this encounter Care Teams Balloon Design Printer Relationship Specialty Start Date End Date Farideh Senior DO [address] [place] [address] PCP - General Family Medicine 01/31/16 documented as of this encounter
--- OUTSIDE RECORDS SUMMARY | 2025-03-24 11:50 | XMS_ITS | Encounter Summary ---
[facility] Address [address] [place] [address] Care Team Providers Care Manager Disaster Recovery Name Role Phone Farideh Senior DO Primary [...] Description 06/22/2025 11:00 AM EST Office Visit [facility] FAMILY MEDICINE [address] [place] [address] Farideh Senior DO [address] [place] [address] documented as of this encounter Visit Diagnoses Not on filedocumented in this encounter Care Teams Manager Disaster Recovery Relationship Specialty Start Date End Date Farideh Senior DO [address] [place] [address] PCP - General Family Medicine 01/31/16 documented as of this encounter
--- OUTSIDE RECORDS SUMMARY | 2025-03-24 11:50 | XMS_ITS | Encounter Summary ---
[facility] Address [address] [place] [address] Care Team Providers Care Industrial Energy Engineer Name Role Phone Farideh Senior DO Primary [...] AM EST Office Visit [facility] FAMILY MEDICINE [address] [place] [address] Farideh Senior DO [address] [place] [address] documented as of this encounter Visit Diagnoses Not on filedocumented in this encounter Care Teams Industrial Energy Engineer Relationship Specialty Start Date End Date Farideh Senior DO [address] [place] [address] PCP - General Family Medicine 01/31/16 documented as of this encounter
--- OUTSIDE RECORDS SUMMARY | 2025-03-24 11:50 | XMS_ITS | Clinical Summary ---
Author Organization [facility] Address [address] [id number] Care Team Providers Care Team Leader Surgery Name Role Phone Unavailable Primary Care Provider [...] 2008 [facility]-Zoster Vaccines (1 of 2) 2008 [id number] Vaccine ( 20 24-25 season) 2025 [facility]-Influenza Vaccine (#1) 2025 [facility]-RSV Vaccine: 60+ [...]
--- OUTSIDE RECORDS SUMMARY | 2025-03-24 11:51 | XMS_ITS | Encounter Summary ---
[facility] [address] [place] [address] Care Team Providers Care Scroll Assembler Name Role Phone Farideh Senior DO Primary Care Provider Encounter Details Date Type Department Care Team (Latest Contact Info) Description 02/13/2025 Travel Social History Tobacco Use Types Packs/Day [...] Description 06/22/2025 11:00 AM EST Office Visit [facility]ILY MEDICINE [address] [place] [address] Farideh Senior DO [address] [place] [address] documented as of this encounter Visit Diagnoses Not on filedocumented in this encounter Care Teams Scroll Assembler Relationship Specialty Start Date End Date Farideh Senior DO [address] [place] [address] PCP - General Family Medicine 01/31/16 documented as of this encounter
--- OUTSIDE RECORDS SUMMARY | 2025-03-24 11:51 | XMS_ITS | Encounter Summary ---
[facility] [address] [place] [address] Care Team Providers Care Concrete Pavement Installer Name Role Phone Farideh Senior DO Primary Care Provider Reason for Visit * Reason Comments Med Refill Encounter Details Date Type Department Care Team (Late st Contact Info) Description 03/22/2025 Refill [facility] MEDICINE [address] [place] [address] Farideh Senior DO [address] [place] [address] Social History Tobacco Use Types [...] Description 06/22/2025 11:00 AM EST Office Visit [facility] FAMILY MEDICINE [address] [place] [address] Farideh Senior DO [address] [place] [address] documented as of this encounter Visit Diagnoses Not on filedocumented in this encounter Care Teams Concrete Pavement Installer Relationship Specialty Start Date End Date Farideh Senior DO [address] [place] [address] PCP - General Family Medicine 01/31/16 documented as of this encounter
--- OUTSIDE RECORDS SUMMARY | 2025-03-24 11:51 | XMS_ITS | Clinical Summary ---
Author Organization [facility] Address [address] [place] [id number] Care Team Providers Care Paver Layer Name Role Phone Nadeen, Farideh Joy DO [...] (Two) Times a Week. 12/03/19 24 Active naproxen (NAPROSYN) 500 MG tabletIndications [...] Daily. 90 tablet 1 12/18/19 25 Active pravastatin (PRAVACHOL) 40 MG [...] Daily. 90 tablet 3 12/18/19 25 Active ondansetron (Zofran) 4 MG tabletIndications :Nausea Take 1 tablet by mouth Every 8 (Eight) Hours As Needed for Nausea or Vomiting. 20 tablet 02/05/20 25 Active omeprazole (priLOSEC) 40 MG capsule Take 1 capsule by mouth Daily. 90 capsule 1 02/17/20 25 Active Synthroid 125 MCG tablet TAKE 1 TABLET BY MOUTH EVERY MORNING 30 tablet 03/23/20 25 Active Synthroid 125 MCG tablet Take 1 tablet by mouth Every Morning. 90 tablet 1 02/17/20 25 2024 Discontinued Active Problems Problem Noted Date Diagnosed Date Ataxia 07/23/2020 Keeps losing balance 07/23/2020 Family history of early CAD 07/23/2020 Memory changes 07/23/2020 Tension headache 08/06/2017 Chronic pain of left knee 08/06/2017 Gastroesophageal reflux disease 08/06/2017 Essential hypertension 08/06/2017 Acquired hypothyroidism 08/06/2017 Mixed hyperlipidemia 08/06/2017 Seasonal allergic rhinitis due to pollen 017 Encounters Date Type Department Care Team Description 03/22/2025 Refill [facility] [address] [place] [address] Farideh Senior, 02/18/2025 Results Follow-Up [facility] [address] [place] [address] Farideh Senior, 02/16/2025 Refill [facility] [address] [place] [address] Farideh Senior, 02/16/2025 Prior Authorization [facility] [address] [place] [address] Farideh Senior DO Voquezna PA 02/13/2025 10:40 AM EDT Lab [facility] [address] [place] [address] 02/13/2025 Travel 02/09/2025 Results Follow-Up [facility] [address] [place] [address] Farideh Senior, 02/09/2025 Results Follow-Up [facility] [address] [place] [address] Farideh Senior, 02/04/2025 4:30 PM EDT Office Visit [facility] [address] [place] [address] Farideh Senior, DO Indigestion (Primary Dx); Early satiety; Left lower quadrant abdominal tenderness without rebound tenderness; Nausea 02/04/2025 Travel 02/03/2025 Results Follow-Up [facility] [address] [place], [place] [address] Farideh Senior, DO 02/01/2025 Results Follow-Up [facility] [address] [place], [place] [address] Farideh Senior, DO 01/29/2025 10:40 AM EDT Lab [facility] [address] [place], [place] [address] 01/29/2025 Travel 01/12/[address] [facility] [address] [place], [place] [address] Farideh Senior, 01/04/2025 Results Follow-Up [facility] [address] [place], [place] [address] Farideh Senior, DO Results from Last 3 Months Immunizations Immunization Administration Dates Next Due COVID-19 (MODERNA) 1st,2nd,3 rd Dose Monovalent 09/23/2021,05/13/2021 Fluzone >6mos 03/21/2017,03/21/2017 Fluzone (or Fluarix & Flulav al for VFC) >6mos 04/07/2022,03/19/2020,03/29/2019 Fluzone High-Dose 65+yrs 06/06/2023 Hepatitis A 03/14/2019 Pneumococcal Conjugate 20-Valent (PCV20) 023 Tdap 02/19/2019 Zostavax 03/21/2017,03/21/2017 Family History Medical History Relation Name Comments Heart attack Brother 1 Heart attack Brother 2 Asthma Father Irsael Diabetes Mother Steff Heart attack Mother [place] Heart disease Mother [place] Hyperlipidemia Mother [place] Hypertension Mother [place] Kidney disease Mother [place] No Known Problems Sister Relation Name Status Comments Brother 1 Alive Brother 2 Father Irsael Mother Steff Sister Social History Tobacco Use [...] [facility] [address] [place] [address] Farideh Senior DO [address] [place] [address] Health Maintenance Due Date Last Done Comments COLON CANCER SCREENING [address] COLONOGRAPHY 2003 FECAL OCCULT BLOOD TEST 2003 FIT Testing (1 year) 2003 ZOSTER VACCINE (2 of 3) 05/16/2017 03/21/2017, 03/21 COLONOSCOPY 06/11/2020 06/11/2010 (Jazmin ent-Reported (Performed Externally)) INFLUENZA VACCINE 01/09/2025 06/06/2023, , 03/19/2020, Additional history exists COVID-19 Vaccine ( - 2024-2 6 season) 2025 06/23/2022, 09/23/2021, 05/13/2021, Additional history exists ANNUAL WELLNESS VISIT 06/19/2025 06/19/2024 , 06/19/2024, 06/06/2023, Additional history exists DXA SCAN 07/05/2025 07/05/2023 LIPID PANEL 12/17/2025 12/17/2024, 02/2025, 06/06/2023, Additional history exists MAMMOGRAM 01/31/2027 01/23/2025, 0 08/2024, 01/10/2024, Additional history exists COLOGUARD 01/09/2028 01/08/2025, 040 11/2021, 08/14/2021, Additional history exists COLORECTAL CANCER SCREENING 01/09/2028 TDAP/TD VACCINES (2 - Td or Tdap) 02/19/2029 019 Pneumococcal Vaccine 50+ Completed 06/06/2023 HEPATITIS C SCREENING Completed 02/13/2025, 019 Procedures Procedure Name Priority Date/Time Associated Diagnosis Comments HEPATITIS C VIRUS INTERPRETATION Routine 02/13/2025 10:31 AM EDT CONV FABY+DNA/DS+ANTICH+CENT RO+FA.. Routine 02/13/2025 10:31 AM EDT AFP TUMOR MARKER Routine 02/13/2025 10:3 1 AM EDT Elevated LFTs [id number] Routine 02/13/2025 1 0:31 AM EDT Elevated LFTs FLORIN BY IFA, REFLEX 9-BIOMARKERS PROFILE Routine 02/13/2025 10:31 AM EDT Elevated LFTs ACTIN SMOOTH MUSCLE ANTIBODY Routine 02/13/2025 10:31 AM EDT Elevated LFTs CERULOPLASMIN Routine 02/13/2025 10:31 AM EDT Elevated LFTs FERRITIN Routine 02/13/2025 10:31 AM EDT Elevated LFTs GAMMA GT Routine 02/13/2025 10:31 AM EDT Elevated LFTs HEPATIC FUNCTION PANEL Routine 10:31 AM EDT Elevated LFTs HEPATITIS PANEL, ACUTE Routine 10:31 AM EDT Elevated LFTs IRON Routine 02/13/2025 10:31 AM EDT Elevated LFTs MITOCHONDRIAL ANTIBODIES, M2 Routine 02/13/2025 10:31 AM EDT Elevated LFTs SCANNED - IMAGING 02/06/2025 COMPREHENSIVE METABOLIC PANEL Routine 02/04/2025 3:54 PM EDT CONV SPECIMEN STATUS REPORT Routine 01/29/2025 10:45 AM EDT COMPREHENSIVE METABOLIC PANEL Routine 01/29/2025 10:45 AM EDT Elevated LFTs MAMMO DIAGNOSTIC DIGITAL TOMOSYNTHESIS LEFT W CAD Routine 01/23/2025 Abnormal mammogram COLOGUARD Routine 01/08/2025 9:40 AM EDT Screening for colon cancer LIPID PANEL W/ CHOL/HDL RATIO Routine 12/17/2024 10:28 AM EDT Essential hypertension Mixed hyperlipidemia Acquired hypothyroidism Frequent urination UTI symptoms Urine leukocytes DEXA BONE DENSITY AXIAL Routine 07/05/2023 Postmenopausal Screening for osteoporosis from Last 3 Months or Most Recently Relevant to Health Maintenance Results * (ABNORMAL) FLORIN by IFA, Reflex 9-biomarkers profile (02/13/2025 10:31 AM EDT) FLORIN Positive(A) [facility] Comment: Negative <1:80 Borderline 1:80 Positive >1:80 Please note Comment [facility] Comment: FLORIN Multiplex methodology was designed to detect up to 11 antibodies of the 100+ antibodies that may be detected by FLORIN IFA methodology. Blood 02/13/2025 10:3 1 AM EDT 02/13/2025 Narrative [facility] (AMBULATORY) - 02/18/2025 2:11 PM EDT Performed at: [address] [id number] Dry House Tender: Johnson Rose PhD, Phone: [phone] Patient Fasting: Y [facility] LAB BLOOD ORDERABLES Final Result Performing Organization Address [facility] de Phone Number [facility] ([facility]) [address] [place] [address], [facility] [address] [place] [address], * Hepatitis C Virus Interpretation (02/13/2025 10:31 AM EDT) Interpretation Comment [facility] Comment: Not infected with HCV unless early or acute infection is suspected (which may be delayed in an immunocompromised individual), or other evidence exists to indicate HCV infection. 02/13/2025 10:3 1 AM EDT 02/13/2025 Narrative [facility] (AMBULATORY) - 02/18/2025 2:11 PM EDT Performed at: [address] [id number] Dry House Tender: Johnson Rose PhD, Phone: [phone] Patient Fasting: Y Farideh [facility] [employer] LAB BLOOD ORDERABLES Final Result Performing Organization Address [facility] de Phone Number [facility] ([facility]) [address] [place] [address], [place] [phone] [facility] [address] [place] [address], [place] [phone] * (ABNORMAL) FABY+DNA/DS+Antich+Centro+FA.. (02/13/2025 10:31 AM EDT) Speckled Pattern >1:1280(A) [facility] Comment: Dense Fine Speckled pattern is noted. This pattern suggests the presence of DFS70 antibody which has a low prevalence in systemic autoimmune rheumatic diseases. ICAP nomenclature: AC-2,4,5,29 Note: (Reference) Comment [facility] Comment: Pattern Potential Disease Association Homogeneous Systemic Lupus Erythematosus, Drug Induced Systemic Lupus Erythematosus, Chronic Autoimmune hepatitis, Juvenile Idiopathic Arthritis Speckled Sjogren Syndrome, Systemic Lupus Erythematosus, Subacute Cutaneous Lupus, Lupus, Congenital Heart Block, Mixed Connective Tissue Disease, Scleroderma-diffuse, Scleroderma-Autoimmune Myositis Overlap Syndrome, Systemic Lupus Ilfkqdcvaptwn-Wpybtcugpqb-Mxmwdeikah Myositis Overlap Syndrome, Systemic Autoimmune Rheumatic Disease, Undifferentiated Connective Tissue Disease Nucleolar Systemic Sclerosis, Scleroderma-Autoimmune Myositis Overlap Syndrome, Sjogren Syndrome, Raynaud phenomenon, Pulmonary Arterial Hypertension, Systemic Autoimmune Rheumatic Disease, Cancer Centromere Scleroderma-CREST, Limited Cutaneous SSc, Raynaud's Phenomenon, Primary Biliary Cholangitis Nuclear Dot Primary Biliary Cholangitis Nuclear Primary Biliary Cholangitis, Autoimmune Membrane Hepatitis/Liver disease, Systemic Autoimmune Rheumatic Disease, Autoimmune Cytopenias, Linear Scleroderma, Antiphospholipid Syndrome Anti-DNA (DS) Ab Qn <1 0 - 9 IU/mL [facility] Comment: Negative <5 Equivocal 5 - 9 Positive >9 [employer] Antibodies <0.2 0.0 - 0.9 AI [facility] Mata Antibodies <0.2 0.0 - 0.9 AI [facility] Antiscleroderma-70 Antibodies <0.2 0.0 - 0.9 AI [facility] Sjogren's Anti-SS-A 0.3 0.0 - 0.9 AI [facility] Sjogren's Anti-SS-B <0.2 0.0 - 0.9 AI [facility] Antichromatin Antibodies 0.6 0.0 - 0.9 AI [facility] MARY ALICE-1 IgG <0.2 0.0 - 0.9 AI [facility] Anti-Centromere B Antibodies <0.2 0.0 - 0.9 AI [facility] See below: Comment [facility] Comment: Autoantibody Disease Association Condition Frequency --------- Antinuclear Antibody, SLE, mixed connective Direct (FLORIN-D) tissue diseases --------- dsDNA SLE 40 - 60% --------- Chromatin Drug induced SLE 90% SLE 48 - 97% --------- SSA (Ro) SLE 25 - 35% Sjogren's Syndrome 40 - 70% Lupus 100% --------- SSB (La) SLE 10% Sjogren's Syndrome 30% --------- Sm (anti-Mata) SLE 15 - 30% --------- IN[employer]CTOR WEAVING Mixed Connective Tissue Disease 95% (U1 nRNP, SLE 30 - 50% anti-ribonucleoprotein) Polymyositis and/or Dermatomyositis 20% --------- Scl-70 (antiDNA Scleroderma (diffuse) 20 - 35% topoisomerase) Crest 13% --------- Mary Alice-1 Polymyositis and/or Dermatomyositis 20 - 40% --------- Centromere B Scleroderma - Crest variant 80% 02/13/2025 10:3 1 AM EDT 02/13/2025 Narrative [facility] (AMBULATORY) - 02/18/2025 2:11 PM EDT Performed at: [address] [place] [id number] Dry House Tender: Johnson Rose PhD, Phone: [phone] Patient Fasting: Y us Farideh Senior DO LAB BLOOD ORDERABLES Final Result [facility] ([facility]ULATORY) [address] [place] [address], [facility] [address] [place] [address], * Alpha - 1 - Antitrypsin (02/13/2025 10:31 AM EDT) [facility] A-1 Antitrypsin 151 101 - 187 mg/dL [facility] Blood 02/13/2025 10:3 1 AM EDT 02/13/2025 Narrative [facility] (AMB[facility]ORY) - 02/18/2025 2:11 PM EDT Performed at: - [facility] [address] [place], [place] [id number] Dry House Tender: Johnson Rose PhD, Phone: [phone] Patient Fasting: Y Farideh Senior DO LAB BLOOD ORDERABLES Final Result Performing Organization Address [facility] Co de Phone Number [facility] [address] [place] [address], [place] [phone] [facility] [address] [place] [address], * Mitochondrial Antibodies, M2 (02/13/2025 10:31 AM EDT) Pathologist [facility] Mitochondrial Ab <20.0 0.0 - 20.0 Units [facility] Comment: Negative 0.0 - 20.0 Equivocal 20.1 - 24.9 Positive >24.9 Mitochondrial (M2) Antibodies are found in 90-96% of patients with primary biliary cirrhosis. Blood 02/13/2025 10:3 1 AM EDT 02/13/2025 N[facility]ative [facility] - 02/18/2025 2:11 PM EDT Performed at: Lab[address] [id number] Dry House Tender: Johnson Rose PhD, Phone: [phone] Patient Fasting: Y Farideh Senior DO LAB BLOOD ORDERABLES Final Result Performing Organization Address [facility] Co de Phone Number [facility] [address] [place] [address], [place] [phone] [facility] [address] [place] [address], * (ABNORMAL) Ceruloplasmin (02/13/2025 10:31 AM EDT) Pathologist [facility] Ceruloplasmin 40.5(H) 19.0 - 39.0 mg/dL [facility] Blood 02/13/2025 10:3 1 AM EDT 02/13/2025 [facility] (AMBULATORY) - 02/18/2025 2:11 PM EDT Performed at: [facility] Lab[address] [id number] Dry House Tender: Johnson Rose PhD, Phone: [phone] Patient Fasting: Y Farideh Benita Senior DO LAB BLOOD ORDERABLES Final Result Performing Organization Address City/[facility]/ZIP Co de Phone Number [facility] [address] [place] [address], [place] [phone] [facility] [address] [place] [address], [place] [phone] * AFP Tumor Marker (02/13/2025 10:31 AM EDT) [facility] AFP Tumor Marker 2.7 0.0 - 9.2 ng/mL [facility] Comment: [facility] Electrochemiluminescence Immunoassay (ECLIA) Values obtained with different assay methods or kits cannot be used interchangeably. Results cannot be interpreted as absolute evidence of the presence or absence of malignant disease. This test is not interpretable in females. Blood 02/13/2025 10:3 1 AM EDT 02/13/2025 [facility] (AMBULATORY) - 02/18/2025 2:11 PM EDT Performed at: [address] [place] [id number] Dry House Tender: Johnson Rose PhD, Phone: [phone] Patient Fasting: Y Farideh Senior DO LAB BLOOD ORDERABLES Final Result Performing Organization Address City/[facility]/ZIP Co de Phone Number [facility] [address] [place] [address], [place] [phone] [facility] [address] [place] [address], [place] [phone] * Hepatitis Panel, Acute (02/13/2025 10:31 AM EDT) [facility] Hep A IgM Negative Negative [facility] Comment: A negative anti-HAV IgM result suggests no recent or current HAV infection. Hepatitis B Surface Ag Negative Negative [facility] Hep B Core IgM Negative Negative [facility] Hepatitis C Ab Non Reactive Non Reactive [facility] Blood 02/13/2025 10:3 1 AM EDT 02/13/2025 Narrative [facility] ([facility]) - 02/18/2025 2:11 PM EDT Performed at: [facility] [id number] Dry House Tender: Johnson Rose PhD, Phone: [phone] Patient Fasting: Y Faridehjesse Joy Nadeen DO LAB BLOOD ORDERABLES Final Result Performing Organization Address City/[facility]/ZIP Co de Phone Number [facility] (AMBULATORY) [address] [place] [address], [place] [phone] [facility] [address] [place] [address], [place] [phone] * Anti-Smooth Muscle Antibody Titer (02/13/2025 10:31 AM EDT) [facility] Smooth Muscle Ab 5 0 - 19 Units [facility] Comment: Negative 0 - 19 Weak positive 20 - 30 Moderate to strong positive >30 Actin Antibodies are found in 52-85% of patients with autoimmune hepatitis or chronic active hepatitis and in 22% of patients with primary biliary cirrhosis. Blood 02/13/2025 10:3 1 AM EDT 02/13/2025 [facility] ([facility]) - 02/18/2025 2:11 PM EDT Performed at: [facility] [id number] Dry House Tender: Johnson Rose PhD, Phone: [phone] Patient Fasting: Y [facility] DO LAB BLOOD ORDERABLES Final Result Performing Organization Address City/[facility]/ZIP Co de Phone Number [facility] (AMBULATORY) [address] [place] [address], [place] [phone] [facility] [address] [place] [address], [place] [phone] * Iron (02/13/2025 10:31 AM EDT) Iron 82 27 - 139 ug/dL [facility] Blood 02/13/2025 10:3 1 AM EDT 02/13/2025 Narrative [facility] (AMBULATORY) - 02/18/2025 2:11 PM EDT Performed at: [address] [place] [address] [place] [id number] Dry House Tender: Johnson Rose PhD, Phone: [phone] Patient Fasting: Y Farideh [address] [employer] DO LAB BLOOD ORDERABLES Final Result Performing Organization Address [facility]/ZIP Co de Phone Number [facility] [address] [place] [address], [place] [phone] [facility] [address] [place] [address], [place] [phone] * (ABNORMAL) Gamma GT (02/13/2025 10:31 AM EDT) GGT 108(H) 0 - 60 IU/L [facility] Blood 02/13/2025 10:3 1 AM EDT 02/13/2025 [facility] ([facility]) - 02/18/2025 2:11 PM EDT Performed at: [address] [place] [address] [place] [id number] Dry House Tender: Johnson Rose PhD, Phone: [phone] Patient Fasting: Y Faridehjesse Joy Nadeen DO LAB BLOOD ORDERABLES Final Result [facility] [address] [place] [address], [place] [phone] [facility] [address] [place] [address], [place] [phone] * (ABNORMAL) Ferritin (02/13/2025 10:31 AM EDT) Ferritin 751(H) 15 - 150 ng/mL [facility] Blood 02/13/2025 10:3 1 AM EDT 02/13/2025 Narrative [facility] ([facility]) - 02/18/2025 2:11 PM EDT Performed at: 01 - [facility] [address] [facility] [place], [place] [id number] Dry House Tender: Johnson Rose PhD, Phone: [phone] Patient Fasting: Y us Farideh Senior DO LAB BLOOD ORDERABLES Final Result [facility] (AM[facility]UL[facility]ORY) [address] [place] [address], [facility] [address] [place] [address], [place] [phone] * (ABNORMAL) Hepatic Function Panel (02/13/2025 10:31 AM EDT) Total Protein 7.3 6.0 - 8.5 g/dL [facility] Albumin 4.4 3.9 - 4.9 g/dL [facility] Total Bilirubin 0.8 0.0 - 1.2 mg/dL [facility] Bilirubin, Direct 0.26 0.00 - 0.40 mg/dL [facility] Alkaline Phosphatase 138(H) 44 - 121 IU/L [facility] Comment: Effective February 23, 2025 Alkaline Phosphatase reference interval will be changing to: Age Male Female 0 - 5 days 47 - 127 47 - 127 6 - 10 days 29 - 242 29 - 242 11 - 20 days 109 - 357 109 - 357 21 - 30 days 94 - 494 94 - 494 1 - 2 months 149 - 539 149 - 539 3 - 6 months 131 - 452 131 - 452 7 - 11 months 117 - 401 117 - 401 12 months - 6 years 158 - 369 158 - 369 7 - 12 years 150 - 409 150 - 409 13 years 156 - 435 78 - 227 14 years 114 - 375 64 - 161 15 years 88 - 279 56 - 134 16 years 74 - 207 51 - 121 17 years 63 - 161 47 - 113 18 - 20 years 51 - 125 42 - 106 21 - 50 years 47 - 123 41 - 116 51 - 80 years 49 - 135 51 - 125 >80 years 48 - 129 48 - 129 AST (SGOT) 50(H) 0 - 40 IU/L [facility] ALT (SGPT) 34(H) 0 - 32 IU/L [facility] Blood 02/13/2025 10:3 1 AM EDT 02/13/2025 Narrative [facility] (AMBULATORY) - 02/18/2025 2:11 PM EDT Performed at: - [address] [id number] Dry House Tender: Johnson Rose PhD, Phone: [phone] Patient Fasting: Y Farideh Senior DO LAB BLOOD ORDERABLES Final Result [facility] [address] [place] [address], [place] [phone] [facility] [address] [place] [address], [place] [phone] * IMAGING SCANNED (02/06/2025) Anatomical Region Laterality Modality Radiographic Jeniffer ging us Farideh Senior DO IMG DIAGNOSTIC IMAGING ORDE RABLES Final Result * (ABNORMAL) Comprehensive Metabolic Panel (02/04/2025 3:54 PM EDT) Only the most recent of2 resultswithin the time period is included. Glucose 92 70 - 99 mg/dL [facility] [...] LAB 02/04/2025 3:54 PM EDT 02/04/2025 Narrative [facility] (AMBULATORY) - 02/05/2025 10:36 AM EDT Performed at: 01 - [address] [id number] Dry House Tender: Johnson Rose PhD, Phone: [phone] Patient Fasting: N Wututu Farideh Senior DO LAB BLOOD ORDERABLES Final Result [facility] (AMBULATORY) [address] [place] [address], [place] [phone] [facility] [address] [place] [address], [place] [phone] * Specimen Status Report (01/29/2025 10:45 AM EDT) Specimen Status CANCELED [facility] Comment: [facility] specimen to perform the following test(s), and is providing the patient with re-collection instructions. TEST: [id number] Comp. Metabolic Panel (14) Result canceled by the ancillary. 01/29/2025 10:4 5 AM EDT 01/29/2025 Narrative [facility] (AMBULATORY) - 01/30/2025 4:11 PM EDT Performed at: [address] [id number] Dry House Tender: Johnson Rose PhD, Phone: [phone] Patient Fasting: Y SparksFaridehjesse Senior DO LAB BLOOD ORDERABLES Edited Result - Final [facility] ([facility]) [address] [place] [address], [place] [phone] [facility] [address] [place] [address], [place] [phone] * Mammo Diagnostic Digital Tomosynthesis Left With CAD (01/23/2025) Anatomical Region Laterality Modality Breast Left Mammography Farideh Senior DO IMG MAMMOGRAPHY ORDERABLES Final Result * Cologuard - Stool, Per Rectum (01/08/2025 9:40 AM EDT) Cologuard Negative Negative 01/15/2025 3:23 PM EDT [facility] (CLIA #:[id number]) Comment: The Cologuard (TM) test was performed [...] cancer. Following a negative Cologuard result, the [place] [employer] and U.S. Multi-Society Task Force screening guidelines recommend a Cologuard re-screening interval of 3 years. References: [place] [employer] Guideline for Colorectal Cancer Screening: https://www.cancer.org/cancer/eyfdv-goxofn-dfhnvi/fitaaidzz-drctmjlta-remprzd/ac s-rec ommendations.html.; Max HOLLINS, Ricki LUQUE, Mario AguilarK, Colorectal Cancer Screening: Recommendations for Physicians and Patients from the U.S. Multi-Society Task Force on Colorectal Cancer Screening , Am J Gastroenterology 2017; 112:1801-8180. TEST DESCRIPTION: Composite algorithmic analysis of stool [...] (Arabella Andrew al, N Engl J Med 2014;370(14):8062-3052.) Cologuard may produce a false negative or false positive result (no colorectal cancer or precancerous polyp present at colonoscopy follow up). A negative Cologuard test result does not guarantee the absence of CRC or advanced adenoma (pre-cancer). The current Cologuard screening interval is every 3 years. ([place] [employer] and U.S. Multi-Society Task Force). Cologuard performance data in a 10,000 patient pivotal study using colonoscopy as the reference method can be accessed at the following location: www.[employer].DisplayLink/results. Additional description of the Cologuard test process, warnings and precautions can be found at [email or web address]. Stool specimen (specimen) Specimen from rectum / Unknown 01/08/2025 9:40 AM EDT 01/09/2025 4:02 PM EDT Farideh Senior DO BODY FLUIDS AND STOOLS ZARINASb MCCARTYKARL Final Result [facility] (CLIA #:[id number]) Keri [place] [address], [place] [phone] * (ABNORMAL) Lipid Panel With / Chol / HDL Ratio (12/17/2024 10:28 AM EDT) Pathologist [facility] Total Cholesterol 157 0 - 200 mg/dL [...] - 12/23/2024 3:07 AM EDT Performed at: [address] [place] [address] [id number] Dry House Tender: Livan Dejesus MD, Phone: [phone] Patient Fasting: Y us Farideh Senior DO LAB BLOOD ORDERABLES Final Result [facility] ([facility]) [address] [place] [address], [place] [phone] [facility] [address] [place] [address], [place] [phone] * DEXA Bone Density Axial (07/05/2023) Anatomical Region Laterality Modality Wrist, Hip, L-spine N/A Radiographic Imaging us Farideh Senior DO IMG DXA ORDERABLES Final Re sult from Last 3 Months or Most Recently Relevant to Health Maintenance Insurance [employer] MEDICARE ADVANTAGE PPO Care Teams Paver Layer Relationship Specialty Start Date End Date Farideh [place] [address] PCP - General Family Medicine 01/31/16
--- OUTSIDE RECORDS SUMMARY | 2025-03-24 11:51 | XMS_ITS | Encounter Summary ---
[facility] Address [address] [place] [address] Care Team Providers Care Acid Cleaner Name Role Phone Farideh Senior DO Primary Care Provider [phone] Reason for Referral * Consultation (Routine) - Authorized Specialty Diagnoses / Procedures Referred By Contac t Referred To Contact Diagnoses Early satiety Indigestion Bloating Procedures NM OFFICE/OUTPATIENT NEW MODERATE MDM 45 MINUTES Farideh Senior DO [address] [place] [address] Phone: tel: fax: Adan Moser MD [address] [address] Phone: tel: fax: Referral ID Status Reason Start Date Expiration Date Visits Requested Visits Authorized [id number] Authorized Specialty Services Required 02/10/2025 05/12/2026 1 1 Scheduling Instructions [place] [facility] Encounter Details Date Type Department Care Team (Late st Contact Info) Description 02/09/2025 Results Follow-Up [facility] [address] [place] [address] Farideh Senior DO [address] [place] [address] Social History Tobacco Use Types [...] Description 06/22/2025 11:00 AM EST Office Visit [facility] [address] [place] [address] Farideh Senior DO [address] [place] [address] Scheduled Referrals Name Type Priority Associated Diagnoses Order Schedule Ambulatory Referral to Gastroenterology Outpatient Referral Routine Early satiety Indigestion Bloating Ordered: 02/10/2025 documented as of this encounter Visit Diagnoses Diagnosis Early satiety- Primary Indigestion Dyspepsia and other specified disorders of function of stomach Bloating Flatulence, eructation, and gas pain documented in this encounter Care Teams Acid Cleaner Relationship Specialty Start Date End Date Farideh Senior DO [address] [place] [address] PCP - General Family Medicine 01/31/16 documented as of this encounter
--- OUTSIDE RECORDS SUMMARY | 2025-03-24 11:51 | XMS_ITS | Encounter Summary ---
[facility] Address [address] [place] [address] Care Team Providers Care Process Safety Management Engineer Name Role Phone Farideh Senior DO Primary Care Provider [phone] Encounter Details Date Type Department Care Team (Late st Contact Info) Description 02/09/2025 Results Follow-Up [facility] [address] [place] [address] Farideh Senior DO [address] [place] [address] Social History Tobacco Use Types [...] Description 06/22/2025 11:00 AM EST Office Visit [facility] [address] [place] [address] Farideh Senior DO [address] [place] [address] documented as of this encounter Results * Mitochondrial Antibodies, M2 (02/13/2025 10:31 AM EDT) Mitochondrial Ab <20.0 0.0 - 20.0 Units [facility] Comment: Negative 0.0 - 20.0 Equivocal 20.1 - 24.9 Positive >24.9 Mitochondrial (M2) Antibodies are found in 90-96% of patients with primary biliary cirrhosis. Blood 02/13/2025 10:3 1 AM EDT 02/13/2025 Narrative [facility] ([facility]) - 02/18/2025 2:11 PM EDT Performed at: [address] [place] [address] [id number] Gusset Ripper: Johnson Rose PhD, Phone: [phone] Patient Fasting: Y Farideh Senior DO LAB BLOOD ORDERABLES Final Result Performing Organization Address [facility] Co de Phone Number [facility] [address] [place] [address], [place] [phone] [facility] [address] [place] [address], [place] [phone] * Iron (02/13/2025 10:31 AM EDT) Pathologist [facility] Iron 82 27 - 139 ug/dL [facility] Blood 02/13/2025 10:3 1 AM EDT 02/13/2025 Narrative [facility] ([facility]) - 02/18/2025 2:11 PM EDT Performed at: [address] [place] [address] [id number] Gusset Ripper: Johnson Rose PhD, Phone: [phone] Patient Fasting: Y Farideh Senior DO LAB BLOOD ORDERABLES Final Result Performing Organization Address City/[facility]/ZIP Co de Phone Number [facility] ([facility]) [address] [place] [address], [facility] [address] [place] [address], * Hepatitis Panel, Acute (02/13/2025 10:31 AM EDT) Pathologist [facility] Hep A IgM Negative Negative [facility] Comment: A negative anti-HAV IgM result suggests no recent or current HAV infection. Hepatitis B Surface Ag Negative Negative [facility] Hep B Core IgM Negative Negative [facility] Hepatitis C Ab Non Reactive Non Reactive [facility] Blood 02/13/2025 10:3 1 AM EDT 02/13/2025 Narrative [facility] - 02/18/2025 2:11 PM EDT Performed at: 01 - [address] [id number] Gusset Ripper: Johnson Rose PhD, Phone: [phone] Patient Fasting: Y Farideh Senior DO LAB BLOOD ORDERABLES Final Result [facility] [address] [place] [address], [facility] [address] [place] [address], * (ABNORMAL) Hepatic Function Panel (02/13/2025 10:31 AM EDT) [facility] Total Protein 7.3 6.0 - 8.5 g/dL [...] 10:3 1 AM EDT 02/13/2025 Narrative [facility] ([facility]BULAT[facility]) - 02/18/2025 2:11 PM EDT Performed at: [address] [place] [address] [id number] Gusset Ripper: Johnson Rose PhD, Phone: [phone] Patient Fasting: Y Farideh Senior DO LAB BLOOD ORDERABLES Final Result [facility] [address] [place] [address], [facility] [address] [place] [address], * (ABNORMAL) Gamma GT (02/13/2025 10:31 AM EDT) GGT 108(H) 0 - 60 IU/L [facility] Blood 02/13/2025 10:3 1 AM EDT 02/13/2025 Narrative [facility] ([facility]) - 02/18/2025 2:11 PM EDT Performed at: [address] [place] [address] [id number] Gusset Ripper: Johnson Rose PhD, Phone: [phone] Patient Fasting: Y Farideh Senior DO LAB BLOOD ORDERABLES Final Result Performing Organization Address [facility] Co de Phone Number [facility] ([facility]) [address] [place] [address], [place] [phone] [facility] [address] [place] [address], [place] [phone] * (ABNORMAL) Ferritin (02/13/2025 10:31 AM EDT) Ferritin 751(H) 15 - 150 ng/mL [facility] Blood 02/13/2025 10:3 1 AM EDT 02/13/2025 Narrative [facility] (AMBULATORY) - 02/18/2025 2:11 PM EDT Performed at: [address] [place] [address] [id number] Gusset Ripper: Johnson Rose PhD, Phone: [phone] Patient Fasting: Y Farideh Senior DO LAB BLOOD ORDERABLES Final Result Performing Organization Address [facility] Co de Phone Number [facility] (AMBULATORY) [address] [place] [address], [place] [phone] [facility] [address] [place] [address], [place] [phone] * (ABNORMAL) Ceruloplasmin (02/13/2025 10:31 AM EDT) Ceruloplasmin 40.5(H) 19.0 - 39.0 mg/dL [facility] Blood 02/13/2025 10:3 1 AM EDT 02/13/2025 Narrative [facility] ([facility]) - 02/18/2025 2:11 PM EDT Performed at: [address] [id number] Gusset Ripper: Johnson Rose PhD, Phone: [phone] Patient Fasting: Y Farideh Senior DO LAB BLOOD ORDERABLES Final Result [facility] ([facility]) [address] [place] [address], [place] [phone] [facility] [address] [place] [address], [place] [phone] * Anti-Smooth Muscle Antibody Titer (02/13/2025 10:31 AM EDT) Pathologist [facility] Smooth Muscle Ab 5 0 - 19 Units [facility] Comment: Negative 0 - 19 Weak positive 20 - 30 Moderate to strong positive >30 Actin Antibodies are found in 52-85% of patients with autoimmune hepatitis or chronic active hepatitis and in 22% of patients with primary biliary cirrhosis. Blood 02/13/2025 10:3 1 AM EDT 02/13/2025 [facility] ([facility]) - 02/18/2025 2:11 PM EDT Performed at: - [address] [id number] Gusset Ripper: Johnson Rose PhD, Phone: [phone] Patient Fasting: Y Farideh Senior DO LAB BLOOD ORDERABLES Final Result Performing Organization Address [facility] Co de Phone Number [facility] ([facility]) [address] [place] [address], [place] [phone] [facility] [address] [place] [address], [place] [phone] * (ABNORMAL) FLORIN by IFA, Reflex 9-biomarkers profile (02/13/2025 10:31 AM EDT) Pathologist [facility] FLORIN Positive(A) [facility] Comment: Negative <1:80 Borderline 1:80 Positive >1:80 Please note Comment [facility] Comment: FLORIN Multiplex methodology was designed to detect up to 11 antibodies of the 100+ antibodies that may be detected by FLORIN IFA methodology. Blood 02/13/2025 10:3 1 AM EDT 02/13/2025 Narrative [facility] (AMBULATORY) - 02/18/2025 2:11 PM EDT Performed at: - [facility] [address] [place] [address] [id number] Gusset Ripper: Johnson Rose PhD, Phone: [phone] Patient Fasting: Y Fraideh Senior DO LAB BLOOD ORDERABLES Final Result Performing Organization Address [facility] Co de Phone Number [facility] ([facility]) [address] [place] [address], [facility] [address] [place] [address], [place] [phone] * Alpha - 1 - Antitrypsin (02/13/2025 10:31 AM EDT) A-1 Antitrypsin 151 101 - 187 mg/dL [facility] Blood 02/13/2025 10:3 1 AM EDT 02/13/2025 [facility] - 02/18/2025 2:11 PM EDT Performed at: - [address] [id number] Gusset Ripper: Johnson Rose PhD, Phone: [phone] Patient Fasting: Y Farideh Senior DO LAB BLOOD ORDERABLES Final Result Performing Organization Address [facility] de Phone Number [facility] ([facility]) [address] [place] [address], [facility] [address] [place] [address], [place] [phone] * AFP Tumor Marker (02/13/2025 10:31 AM EDT) AFP Tumor Marker 2.7 0.0 - 9.2 ng/mL [facility] Comment: [facility] Electrochemiluminescence Immunoassay (ECLIA) Values obtained with different assay methods or kits cannot be used interchangeably. Results cannot be interpreted as absolute evidence of the presence or absence of malignant disease. This test is not interpretable in females. Blood 02/13/2025 10:3 1 AM EDT 02/13/2025 Narrative [facility] ([facility]) - 02/18/2025 2:11 PM EDT Performed at: 01 - [facility] [id number] Gusset Ripper: Johnson Rose PhD, Phone: [phone] Patient Fasting: Y Farideh Senior DO LAB BLOOD ORDERABLES Final Result [facility] ([facility]) [address] [place] [address], [place] [phone] [facility] [address] [place] [address], documented in this encounter Visit Diagnoses Diagnosis Elevated LFTs- Primary Other abnormal blood chemistry documented in this encounter Care Teams Process Safety Management Engineer Relationship Specialty Start Date End Date Farideh Senior DO [address] [place] [address] PCP - General Family Medicine 01/31/16 documented as of this encounter
--- OUTSIDE RECORDS SUMMARY | 2025-03-24 11:51 | XMS_ITS | Encounter Summary ---
[facility] Address [address] [place] [address] Care Team Providers Care Media Account Executive Name Role Phone Farideh Senior DO Primary Care Provider Reason for Visit * Reason Onset Date Comments Ray DONALDSON 02/16/2025 Encounter Details Date Type Department Care Team (Late st Contact Info) Description 02/16/2025 Prior Authorization [facility] [address] [place] [address] Farideh Senior DO [address] [place] [address] Ray DONALDSON Social History Tobacco Use Types Packs/Day Years [...] on file documented as of this encounter Miscellaneous Notes * Telephone Encounter - Farideh Senior DO - 02/16/2025 6:18 PM EDT MyChart message reviewed, omeprazole sent to pharmacy. * Telephone Encounter - Quita Shaikh MA - 02/16/2025 1:25 PM EDT Denied Talk to your prescriber to see if the following covered alternative(s) would be right for you: lansoprazole DR capsule (Different quantity limits apply depending on the strength of the medication prescribed. Please consult the Medicare Part D plan's formulary for the specific quantity limit.) omeprazole DR capsule (Different quantity limits apply depending on the strength of the medication prescribed. Please consult the Medicare Part D plan's formulary for the specific quantity limit.) rabeprazole sodium DR tablet (quantity limit of 30 tablets every 30 days * Telephone Encounter - Quita Shaikh MA - 02/16/2025 12:54 PM EDT Ray DONALDSON ([place]: [id number]) Sent Questions stated that pt needs to have tried/failed all the formulary alternatives. Omeprazole capsule Pantoprazole tablet Lansoprazole 15mg or 30mg capsule DR Rabeprazole tablet Pt has only tried pantoprazole according to chart. documented in this encounter Plan of Treatment Upcoming Encounters Date Type Department Care Team (Late st Contact Info) Description 06/22/2025 11:00 AM EST Office Visit [facility] [address] [place] [address] Farideh Senior DO [address] [address] documented as of this encounter Visit Diagnoses Not on filedocumented in this encounter Care Teams Media Account Executive Relationship Specialty Start Date End Date Farideh Senior DO [address] [place] [address] PCP - General Family Medicine 01/31/16 documented as of this encounter
--- OUTSIDE RECORDS SUMMARY | 2025-03-24 11:51 | XMS_ITS | Encounter Summary ---
Author Organization [facility] Address [address] [place] [address] Care Team Providers Care Business Objects Report Developer Name Role Phone Farideh Senior DO Primary Care Provider Encounter Details Date Type Department Care Team (Late st Contact Info) Description 02/18/2025 Results Follow-Up [facility] [address] [place] [address] Farideh Senior DO [address] [place] [address] Social History Tobacco Use Types [...] [facility] [address] [place] [address] Farideh Senior DO [address] [place] [address] documented as of this encounter Visit Diagnoses Not on filedocumented in this encounter Care Teams Business Objects Report Developer Relationship Specialty Start Date End Date Farideh Senior DO [address] [place] [address] PCP - General Family Medicine 01/31/16 documented as of this encounter
--- OUTSIDE RECORDS SUMMARY | 2025-03-24 11:51 | XMS_ITS | Encounter Summary ---
[facility] Address [address] [place] [address] Care Team Providers Care Loan Funder Name Role Phone Farideh Senior DO Primary Care Provider Reason for Visit * Reason Comments Med Refill Encounter Details Date Type Department Care Team (Late st Contact Info) Description 02/16/2025 Refill [facility] [address] [place] [address] Farideh Senior DO [address] [place] [address] Social History Tobacco Use Types [...] Description 06/22/2025 11:00 AM EST Office Visit [facility] [address] [place] [address] Farideh Senior DO [address] [place] [address] documented as of this encounter Visit Diagnoses Not on filedocumented in this encounter Care Teams Loan Funder Relationship Specialty Start Date End Date Farideh Senior DO [address] [place] [address] PCP - General Family Medicine 01/31/16 documented as of this encounter
[2025-03-24 12:25] LABS: Hematocrit 36.3 % (37.0-47.0); Hemoglobin 11.8 g/dL (12.2-16.2); Immature Granulocytes % 0.3 %; Mean Corpuscular HGB Conc 32.5 g/dL (31.8-35.4); Mean Corpuscular Hemoglobin 29.8 pg (27.0-31.2); Mean Corpuscular Volume 91.7 fl (81-99); Nucleated Red Blood Cells % 0 %; Platelet Count 273 K/mm3 (142-424); Red Blood Count 3.96 M/mm3 (4.20-5.40); Red Cell Distribution Width-SD 42.2 fL; White Blood Count 6.4 K/mm3 (4.8-10.8)
[2025-03-24 13:01] LABS: Alanine Aminotransferase 30 U/L (12-78); Albumin Level 4.1 g/dl (3.5-5.0); Albumin/Globulin Ratio 1.5 (1.1-1.8); Alkaline Phosphatase 189 U/L (38-126); Amylase 48 U/L (30-110); Anion Gap 12.9 mEq/L (5-15); Aspartate Amino Transferase 42 U/L (14-36); Bilirubin,Total 0.8 mg/dl (0.2-1.3); Blood Urea Nitrogen 16 mg/dl (7-17); Calcium 9.5 mg/dl (8.4-10.2); Carbon Dioxide 30 mmol/L (22.0-30.0); Chloride 100 mmol/L (98-107); Creatinine,Serum 0.90 mg/dl (0.52-1.04); Estimated Glomerular Filt Rate 63 ml/min (>60); GFR (African American) 76 ML/MIN (>60); Globulin 2.7 g/dL (1.3-3.2); Glucose 102 mg/dl (74-100); Potassium 4.9 mmoL/L (3.5-5.1); Sodium 138 mmol/L (136-145); Total Protein,Serum 6.8 g/dl (6.3-8.2)
[2025-03-25 15:21] LABS: Deamidated Gliadin Abs, IgA 6 units (0-19); Deamidated Gliadin Abs, IgG 2 units (0-19)
== END 2025-03-24 23:59 | disposition home or self-care (01) ==
LOC: LAB 11:48
PROVIDERS: PCP Family Medicine; Visit Provider Internal Medicine Gastroenterology
DX: K74.69 Other cirrhosis of liver (principal); B19.20 Unspecified viral hepatitis C without hepatic coma; R14.0 Abdominal distension (gaseous); R79.89 Other specified abnormal findings of blood chemistry
CPT/HCPCS: 36415; 80053; 82150; 82172; 82247; 82465; 82947; 82977; 83010; 83521; 84450; 84460; 84478; 85025; 86231; 86258; 86364

== ENCOUNTER 2025-05-11 06:05 | Day surgery (SDC) | payer MEDICARE, SELFPAY ==
--- NOTE | 2025-04-29 07:16 | EXP.HP ---
History of Present Illness *Admission Date: 05/11/25 *History of present illness: Mrs. Funes is a 64-year-old female who is here for diagnostic EGD. The patient does have indigestion, belching and abdominal discomfort. She has had fullness, nausea and early satiety. Her brother had liver cancer. She did have a CAT scan of the abdomen and pelvis that showed scattered diverticuli and hepatic steatosis. She also had increased fecal burden. The patient was seen by me on March 24, 2025 and subsequently by Jeaneth GODINEZ on April 21, 2025. She was placed on MiraLAX and Metamucil as well as Iberogast twice daily and Beano. I did recommend decreasing the MiraLAX and continuing everything else. She has had ongoing watery diarrhea, nausea and urgency. She does have some dysphagia.. The examination is deemed medically necessary for diagnostic EGD. The patient has been seen, interviewed and examined prior to the procedure by both myself and the anesthesia provider. [facility] Disclaimer: The information contained in this section may have been updated after the patient was seen, as this information can be updated by other users. Medical History History of COVID-19 Migraine History of gastroesophageal reflux (GERD) Allergies History of stress test Hypertension Thyroid disease Surgical History Hx of cardiac cath Hx of sinus surgery Hx of colonoscopy Oct-200808/11/2010 History of bladder surgery Hx of hysterectomy Family History Brother Liver cancer Other Asthma Diabetes Heart disease Social History Smoking Status: Never smoker alcohol intake: never substance use type: denies use current occupational status: retired Travel in the last 8 weeks?: None Have you lived/traveled outside US in past 30 days?: No Contact w/someone who lives/traveled outside US past 30 days?: No Exposure to someone with infectious disease in past 14 days?: No Do you have a fever (greater than 100.4 F or 38 C)?: No Have you tested positive for COVID-19?: No Exposed to someone with COVID-19 in past 14 days?: No Do you have a sore throat?: No Do you have a cough?: No Do you have any weakness?: No Are you experiencing any nausea/vomitting?: No Do you have any diarrhea?: No Are you experiencing any unusual bleeding?: No Do you have any muscle aches/pain?: No Do you have any abdominal pain?: No Are you experiencing loss of taste or smell?: No Other Medical History Have you received the Pneumonia Vaccine: No (Unknown) Review of Systems Review of Systems Review of systems (narrative): Negative *Cardiovascular Comments: Negative *Gastrointestinal Comments: Negative *Genitourinary Comments: Negative *Musculoskeletal Comments: Negative *Neurologic Comments: Negative Meds Home Medications and Allergies Home Medications ?Medication ?Instructions ?Recorded ?Confirmed ?Type carvedilol 6.25 mg tablet 6.25 mg PO DAILY 30 days #30 tabs 04/02/18 05/11/25 History ascorbic acid (vitamin C) 250 mg 250 mg PO DAILY 09/07/22 05/11/25 History tablet aspirin 81 mg tablet,delayed 81 mg PO DAILY 09/07/22 05/11/25 History release cholecalciferol (vitamin D3) 250 125 mcg PO DAILY 09/07/22 05/11/25 History mcg (10,000 unit) capsule naproxen 500 mg tablet 500 mg PO ONCE PRN Pain 09/07/22 05/11/25 History olmesartan 40 1 tab PO DAILY 09/07/22 05/11/25 History mg-hydrochlorothiazide 12.5 mg tablet pravastatin 40 mg tablet 40 mg PO DAILY 30 days #30 tabs 10/23/23 05/11/25 History alprazolam 0.5 mg tablet 0.5 mg PO NEEDED PRN Anxiety 12/18/24 05/11/25 History estradiol 2 mg tablet 2 mg PO DAILY #30 tabs 12/18/24 05/11/25 Rx levothyroxine 125 mcg tablet 125 mcg PO DAILY 12/18/24 05/11/25 History (Synthroid) omeprazole 40 mg capsule,delayed 40 mg PO DAILY 03/24/25 05/11/25 History release Iberogast PO DAILY 04/20/25 04/21/25 History qlbdw-h-lsgwobpyahrvf 400 unit 400 unit PO DAILY 04/20/25 05/11/25 History tablet (Beano) polyethylene glycol 3350 17 17 g PO 3XW 04/20/25 05/11/25 History gram/dose oral powder (Miralax) psyllium husk (with sugar) 3 1 tbsp PO DAILY 04/20/25 05/11/25 History gram/7 gram oral powder (Metamucil (with sugar)) New Prescriptions to Start Prescriptions: Allergies Allergy/AdvReac Type Severity Reaction Status Date / Time atorvastatin (ATORVASTATIN) Allergy Mild Muscle Pain Verified 05/11/25 06:26 ciprofloxacin (From CIPRO) Allergy Mild Muscle Pain Verified 05/11/25 06:26 indomethacin (From INDOCIN) Allergy Mild Unknown Verified 05/11/25 06:26 allergy reaction simvastatin (SIMVASTATIN) Allergy Mild Muscle Pain Verified 05/11/25 06:26 XYTORIN Allergy Mild Headache Uncoded 04/21/25 13:07 Exam *Routine HEENT Exam Head: Present normocephalic Eye: Present EOMI and PERRL ENT: Present mucous membranes moist *Routine Neck Exam Neck: Present supple *Routine Respiratory Exam Respiratory: Present CTA bilaterally *Routine Cardiovascular Exam Cardiovascular: Present RRR *Routine Abdominal Exam Abdominal: Present soft and normoactive bowel sounds; Absent tenderness *Routine Rectal Exam Rectal:: deferred *Routine Genitalia Exam Genitalia:: deferred *Routine Extremities Exam Extremities: Absent cyanosis, clubbing or edema *Routine Skin Exam Skin: Present warm; Absent rash *Routine Neurological Exam Neurological: Present alert and oriented X3 Assessment and Plan *Assessment and plan (1) Dysphagia: Status: Acute Category: Medical Code(s): R13.10 - Dysphagia, unspecified (2) Vomiting: Status: Acute Category: Medical Code(s): R11.10 - Vomiting, unspecified (3) Belching: Status: Acute Category: Medical Code(s): R14.2 - Eructation (4) Nausea: Status: Acute Category: Medical Code(s): R11.0 - Nausea (5) Bloating: Status: Acute Category: Medical Code(s): R14.0 - Abdominal distension (gaseous) (6) Indigestion: Status: Acute Category: Medical Code(s): K30 - Functional dyspepsia Plan A/P: 1. Indigestion with nausea, vomiting, bloating, belching and dysphagia is the preprocedural diagnosis. The patient will be anesthetized/sedated using MAC sedation. The patient has been seen and examined. Cardiac and lung assessment prior to the examination is stable. Proceed with planned diagnostic EGD.
[2025-05-04 11:53] VITALS: BMI 25.1
[2025-05-11 06:19] VITALS: BP 154/66; PULSE 71; RESP 16; TEMP 36.6; O2SAT 98; BMI 25.1
[2025-05-11] MEDS: LACTATED RINGERS 1000ML 1,000 ML 50 ML IV (06:36)
--- NOTE | 2025-05-11 06:57 | [facility].PROCNOTE ---
[facility] Procedure Note Date: 05/11/25 Time: 07:42 Procedure Note:: Upper Endoscopy Procedure Report: Esophagogastroduodenoscopy with cold biopsies and TTS balloon dilation Endoscopost: Adan Moser II, MD Referring Physician: Farideh Senior MD Date of Procedure: May 11, 2025 Equipment: Olympus GIF-1100 standard upper endoscope Sedation: MAC sedation Indications: Mrs. Funes is a 64-year-old female who is here for diagnostic EGD. The patient does have indigestion, belching and abdominal discomfort. She has had fullness, nausea and early satiety. Her brother had liver cancer. She did have a CAT scan of the abdomen and pelvis that showed scattered diverticuli and hepatic steatosis. She also had increased fecal burden. The patient was seen by me on March 24, 2025 and subsequently by Jeaneth GODINEZ on April 21, 2025. She was placed on MiraLAX and Metamucil as well as Iberogast twice daily and Beano. I did recommend decreasing the MiraLAX and continuing everything else. The patient also discontinued Metamucil because of the diarrhea. She has had ongoing watery diarrhea, nausea and urgency. She does have some dysphagia. The examination is deemed medically necessary for diagnostic EGD. Procedure: Prior to the procedure, a history and physical exam was performed, and patient's medications and allergies were reviewed. The risks, benefits and alternatives of the sedation and procedure were discussed with the patient. All questions were answered and informed consent was obtained. The patient was brought to the procedure room. Patient identification and proposed procedure were verified by the physician and the nurse. The patient was placed in a left lateral decubitus position and the scope was passed under direct vision. Throughout the procedure, the patient's blood pressure, pulse, and oxygen saturations were monitored continuously. The upper GI endoscopy was accomplished without difficulty. The patient tolerated the procedure well. Findings: The scope was passed directly into the upper esophagus and advanced to the third portion of the duodenum. The post bulbar duodenum and duodenal bulb were normal with normal mucosa and conniventes. 2 cold biopsies were taken from the second portion of the duodenum for the disaccharidase assay. The scope was withdrawn through a normal duodenal bulb and pylorus into the stomach. There was very mild linear antral reactive gastropathy. Cold biopsies were taken from the antrum. The body and fundus of the stomach were normal. Upon retroflexion there was a very small sliding 1 to 2 cm hiatal hernia. The scope was then withdrawn into the esophagus. There was no evidence of reflux esophagitis or Hernandez's. There was a serrated Z-line. There were tertiary contractions and evidence of mild esophageal dysmotility. The entire esophagus was dilated to 60 [place]/20 mm with a TTS hydrostatic balloon. There was some resistance at the cricopharyngeus. The remainder of the esophageal mucosa was normal. Impression: 1. Nonerosive GERD with mild esophageal dysmotility and very small sliding hiatal hernia (1 to 2 cm) 2. Mild linear reactive gastropathy of antrum Plan: I will follow-up the biopsies and the disaccharidase assay. We will discuss additional treatment options. I would continue the Iberogast and Beano. I would consider a tricyclic medication because of her abdominal discomfort and diarrhea for neuromodulation.
--- NOTE | 2025-05-11 06:58 | EXP.ANES.CKL ---
[facility] Disclaimer: The information contained in this section may have been updated after the patient was seen, as this information can be updated by other users. Medical History History of COVID-19 Migraine History of gastroesophageal reflux (GERD) Allergies History of stress test Hypertension Thyroid disease Surgical History Hx of cardiac cath Hx of sinus surgery Hx of colonoscopy [id number]/11/2010 History of bladder surgery Hx of hysterectomy Family History Brother Liver cancer Other Asthma Diabetes Heart disease Social History Smoking Status: Never smoker alcohol intake: never substance use type: denies use current occupational status: retired Travel in the last 8 weeks?: None Have you lived/traveled outside [place] in past 30 days?: No Contact w/someone who lives/traveled outside [place] past 30 days?: No Exposure to someone with infectious disease in past 14 days?: No Do you have a fever (greater than 100.4 F or 38 C)?: No Have you tested positive for COVID-19?: No Exposed to someone with COVID-19 in past 14 days?: No Do you have a sore throat?: No Do you have a cough?: No Do you have any weakness?: No Are you experiencing any nausea/vomitting?: No Do you have any diarrhea?: No Are you experiencing any unusual bleeding?: No Do you have any muscle aches/pain?: No Do you have any abdominal pain?: No Are you experiencing loss of taste or smell?: No [facility] Anesthesia Checklist Patient Identification Patient Identification: Arm Band and Family Structural Data Admitted From: Home Planned Operative Procedure/s: EGD Consent for Planned Operative Procedure(s) Verified: Yes Verified Documents: Surgical Consent, History and Physical and Cardiac Clearance NPO Status Verified Time NPO: 00:00 Additional verifications Patient : No Anesthesia Reactions: Yes (Slow to awaken.) Hx Blood Transfusions: No Blood Transfusion Reaction: No Cephalosporin Allergy: No Previous Colonoscopy: Yes Airway Assessment Mallampati Score:: Class II C-Spine Mobility Assessed: Yes TMJ Mobility Assessed: Yes Dentition: Edentulous Neurological Assessment Level of Consciousness: Awake, Alert, Appropriate and Follows Commands Hx Seizures: No Numbness or tingling in extremities: No Anesthesia Plan Anesthesia Risk discussed: Yes ASA Class: II Anesthesia Type: MAC Preoperative Comments Pre-Operative Comments: Slow to awaken from anesthsia.
[2025-05-11 07:45] VITALS: BP 126/58; PULSE 81; RESP 16; TEMP 36.2; O2SAT 97
[2025-05-11 07:55] VITALS: BP 120/60; PULSE 71; RESP 18; TEMP 36.2; O2SAT 98
[2025-05-11 08:05] VITALS: BP 123/69; PULSE 76; RESP 18; TEMP 36.2; O2SAT 98
[2025-05-11 08:15] VITALS: BP 132/65; PULSE 68; RESP 18; TEMP 36.2; O2SAT 98
[2025-05-13 17:11] LABS: Interpretation Notes (.); Lactase 0.65 (>/= 14.0); Maltase 137.27 (>/= 110.0); Palatinase 11.06 (>/= 8.5); Reference Notes (.); Sucrase 34.48 (>/= 25.0)
== END 2025-05-11 08:15 | disposition home or self-care (01) ==
PROVIDERS: PCP Family Medicine; Visit Provider Internal Medicine Gastroenterology
PROC: 0DJ08ZZ Inspection of Upper Intestinal Tract, Via Natural or Artificial Opening Endoscopic (ICD-10-PCS; CPT 43239; principal; 2025-05-11 07:30)
DX: K31.89 Other diseases of stomach and duodenum (principal); K29.50 Unspecified chronic gastritis without bleeding; R13.10 Dysphagia, unspecified; R14.2 Eructation; R14.0 Abdominal distension (gaseous); K30 Functional dyspepsia; K58.0 Irritable bowel syndrome with diarrhea; R68.81 Early satiety; K76.0 Fatty (change of) liver, not elsewhere classified; K57.30 Diverticulosis of large intestine without perforation or abscess without bleeding; G43.909 Migraine, unspecified, not intractable, without status migrainosus; K21.9 Gastro-esophageal reflux disease without esophagitis; I10 Essential (primary) hypertension; E07.9 Disorder of thyroid, unspecified; Z85.51 Personal history of malignant neoplasm of bladder; Z90.710 Acquired absence of both cervix and uterus; Z79.82 Long term (current) use of aspirin; Z79.899 Other long term (current) drug therapy; Z79.890 Hormone replacement therapy; Z88.8 Allergy status to other drugs, medicaments and biological substances; Z86.16 Personal history of COVID-19; Z88.1 Allergy status to other antibiotic agents
CPT/HCPCS: 43239; 43249; 82657; 88305; C1726; J2003; J2704; J7120